=== PATIENT | male | born 1980 | race Caucasian/White ===

== ENCOUNTER 2020-07-08 12:06 | Emergency (ER) | payer OTHER, SELFPAY ==
--- NOTE | ~2020-07-08 | US_ITS ---
EXAMINATION: BILATERAL TRIPLEX SCANNING OF THE LOWER EXTREMITIES CLINICAL INFORMATION: Lower extremity swelling. COMPARISON: None. TECHNIQUE: Color-flow triplex imaging with spectral analysis and compression Doppler were performed on the lower extremities. FINDINGS: Respiratory variation, normal compression and augmented flow are noted throughout the lower extremities. The visualized common femoral vein, superficial femoral vein, profunda femoral vein, popliteal vein and mid calf peroneal and posterior tibial venous segments show no evidence of deep venous thrombosis. There is no Najera's cyst. US/US venous duplex LE BI IMPRESSION: Normal triplex scan without evidence of deep venous thrombosis involving the lower extremities.
--- NOTE | ~2020-07-08 | CT_ITS ---
EXAMINATION: CT ANGIOGRAM CHEST WITH AND WITHOUT CONTRAST (CT PULMONARY ANGIOGRAM FOR PE) CLINICAL INFORMATION: Patient with b/l LE swelling, question PE versus CHF. COMPARISON: CT 01/27/2019 TECHNIQUE: Prior to contrast administration, noncontrast localization images were obtained. Subsequently, multidetector volumetric imaging was performed from the thoracic inlet to below the diaphragms following the administration of 69 mL Omnipaque 350 intravenous contrast. No contrast reaction reported. Sagittal, coronal, and MIP oblique sagittal reformatted images were obtained on the CT workstation, uploaded to PACS, and reviewed. This CT examination was performed using dose optimization techniques as appropriate, variously including the following: *Automated exposure control. *Adjustment of mA and/or kV according to patient size (this includes techniques or standardized protocols for targeted exams where dose is matched to indication/reason for exam; i.e. extremities or head). *Use of iterative reconstruction technique. Total exam dose-length product 324 mGy-cm. FINDINGS: QUALITY OF STUDY/CONTRAST BOLUS: Satisfactory. PULMONARY ARTERIES: No evidence of filling defects to suggest central or segmental pulmonary emboli. THORACIC AORTA: No aneurysm. No evidence of dissection, with the aortic root, proximal aorta suboptimally evaluated due to cardiac motion artifact. LUNG: No focal consolidation. Minimal dependent changes in the posterior aspect of bilateral lungs. No suspicious nodules. PLEURA: No pleural effusion or pneumothorax. MEDIASTINUM: Normal heart size. No pericardial effusion. No hilar or mediastinal lymphadenopathy. No evidence of septal bowing or right heart strain. Mild prominence of the main pulmonary artery measuring 3.1 cm in diameter, suggestive of elevated pulmonary arterial pressures. CHEST WALL/AXILLA: Stable prominent left axillary lymph node measuring 1.1 cm. OSSEOUS STRUCTURES: No acute or suspicious osseous abnormality. UPPER ABDOMEN: Unremarkable. No reflux of contrast into the hepatic veins to suggest elevated right heart pressures. CT/CT angio chest PE protocol IMPRESSION: 1. No evidence of filling defects to suggest pulmonary embolism. 2. Stable mildly prominent main pulmonary artery suggestive of elevated pulmonary arterial pressure. 3. Stable nonspecific prominent 1.1 cm left axillary lymph node. 4. No lung consolidation seen. VTE: Negative.
--- NOTE | ~2020-07-08 | US_ITS ---
EXAMINATION: US NONINVASIVE ASSESSMENT OF THE BILATERAL LOWER EXTREMITY WITH ARTERIAL DUPLEX CLINICAL INFORMATION: Lower extremity edema COMPARISON: None TECHNIQUE: Duplex Doppler techniques with waveform analysis and measurement of velocities in the common femoral, profunda femoris, superficial femoral, popliteal and tibial arteries were performed of the bilateral lower extremities. FINDINGS: RIGHT LOWER EXTREMITY DUPLEX ULTRASOUND: Common femoral artery: 156 cm/s. Diastolic flow reversal: No Profunda femoris artery: 109 cm/s. Diastolic flow reversal: No Superficial femoral artery (proximal): 154 cm/s. Diastolic flow reversal: No Superficial femoral artery (mid): 172 cm/s. Diastolic flow reversal: No Superficial femoral artery (distal): 148 cm/s. Diastolic flow reversal: No Popliteal artery: 132 cm/s Diastolic flow reversal: No Posterior tibial artery: 157 cm/s Diastolic flow reversal: No LEFT LOWER EXTREMITY DUPLEX ULTRASOUND: Common femoral artery: 220 cm/s. Diastolic flow reversal: No Profunda femoris artery: 74 cm/s. Diastolic flow reversal: Yes Superficial femoral artery (proximal): 179 cm/s. Diastolic flow reversal: No Superficial femoral artery (mid): 158 cm/s. Diastolic flow reversal: No Superficial femoral artery (distal): 158 cm/s. Diastolic flow reversal: No Popliteal artery: 118 cm/s Diastolic flow reversal: No Posterior tibial artery: 151 cm/s Diastolic flow reversal: No US/US arterial duplex LE BI IMPRESSION: Mild stenoses throughout the bilateral lower extremities.
--- NOTE | ~2020-07-08 | XR_ITS ---
EXAMINATION: XR CHEST CLINICAL INFORMATION: Lower extremity swelling. COMPARISON: Chest done on 01/10/2019. TECHNIQUE: 2 views of the chest were obtained. FINDINGS: Mild diffuse prominent bronchovascular markings are present, appear similar to prior study, may represent nonspecific bronchitis, appears chronic. No evidence of any dense airspace consolidation to suspect pneumonia. There is no evidence of any pulmonary venous congestion or interstitial edema to suspect CHF. The heart size is within normal limits. No evidence of any pleural effusion or pneumothorax. The visualized upper abdomen is unremarkable. XR/XR chest 2V IMPRESSION: No radiographic evidence of acute cardiopulmonary disease. No significant change since 01/10/2019.
[2020-07-08 12:22] VITALS: BP 138/74; PULSE 97; RESP 18; TEMP 37.1; O2SAT 99; BMI 31.6
--- NOTE | 2020-07-08 15:12 | ED.EXTPRO ---
HPI - Extremity Problem General Chief complaint: Extremity Injury, Lower Stated complaint: leg swelling Time Seen by Provider: 07/08/20 13:23 Source: patient Mode of arrival: ambulatory Limitations: no limitations History of Present Illness HPI Narrative: 39-year-old male with a past medical history of chronic anemia, chronic GERD, asthma, ankylosing spondylitis and pedal edema presenting to the ED with complaints of swelling to bilateral lower extremities with clear/yellow drainage for the past 2 days worse today. Patient also reports weight gain of approximately 30 lb over the past year. Was seen at urgent care and they placed him in a dressing and sent him here for further evaluation and treatment. He reports he had an episode of this a few years ago and was on Lasix which resolve the symptoms although has not been on Lasix since then. Denies any fevers, chills, dizziness, headaches, changes in vision, nausea/vomiting, sore throat, cough, dyspnea on exertion, orthopnea, shortness of breath, chest pain, palpitations, any symptoms, calf tenderness or history of IV drug usage. Denies history of DVT or PEs or CHF or ACS. Patient denies recent travel/immobilization/recent surgery or procedure, history of peripheral vascular disease, recent illness or history of gout. MD Complaint: extremity pain and extremity swelling Onset (ago): day(s) (Two days worse today) Pain Consistency: constant Location: lower extremity Quality: aching and constant Radiation: proximal and distal Relieving factors: nothing Exacerbating factors: weight bearing and walking Associated symptoms: denies other symptoms Related Data Home Medications Medication Instructions Recorded Confirmed certolizumab pegol 400 mg (200 mg 400 mg SUBCUT Q2W ea 02/29/20 02/29/20 x 2 vials) subcutaneous kit cyclobenzaprine 5 mg tablet 5 mg PO BEDTIME PRN 02/29/20 02/29/20 fluticasone furoate 100 1 inh INHALATION DAILY 02/29/20 02/29/20 mcg-vilanterol 25 mcg/dose inhalation powder ibuprofen 200 mg tablet 200 mg PO Q6H PRN 02/29/20 02/29/20 prednisone 5 mg tablet 5 mg PO DAILY 02/29/20 02/29/20 Previous Rx's Medication Instructions Recorded albuterol sulfate 90 mcg/actuation 1 inh INHALATION QID PRN 3 Days 02/29/20 aerosol inhaler #18 g Allergies Allergy/AdvReac Type Severity Reaction Status Date / Time No Known Allergies Allergy Verified 07/08/20 12:22 [No Known Allergies*] Review of Systems Review of Systems: Constitutional : Positive weight gain over the past year approximately 30 lb, No Weight loss, No Fever, No Chills, No Night Sweats, No Fatigue, No Malaise ENT/Mouth : No Hearing loss, No Ear Pain, No Nasal Congestion, No Sinus Pain, No Hoarseness, No sore throat, No Rhinorrhea, No Swallowing Difficulty Eyes: No Eye Pain, No Swelling, No Redness, No Foreign Body, No Discharge, No Vision Changes Cardiovascular : No Chest Pain, No SOB, No Dyspnea on Exertion, No Orthopnea, No Edema, No Palpitations Respiratory : No Cough, No Sputum, No Wheezing, No Smoke Exposure, No Dyspnea Gastrointestinal : No Nausea, No Vomiting, No Diarrhea, No Constipation, No abdominal Pain, No Hematochezia, No Melena Genitourinary : no irregular bleeding, No Dysuria, No Urinary Frequency, No Hematuria, No Urinary Incontinence, No Urgency, No Flank Pain, No Urinary Flow Changes, No Hesitancy Musculoskeletal : positive lower extremity pain/swelling, No Myalgias Skin : No Skin Lesions, No rash Neuro : No Weakness, No Numbness, No Paresthesias, No Loss of Consciousness, No Dizziness, No Headache Psych : No Anxiety/Panic, No Depression, No SI/HI/AH/VH, No Social Issues, Heme/Lymph: No Bruising, No Bleeding,No Lymphadenopathy Endocrine : No Polyuria, No Polydipsia, No Temperature Intolerance Yes all other systems are reviewed and are negative FOR[facility]LY [facility] Past Medical History Attestation statement: The following information was validated with the patient. Medical History Ankylosing spondylitis Asthma, moderate Chronic GERD Tobacco abuse Uveitis Surgical History No pertinent past surgical history Family History Family History Father Lymphoma Mother HTN (hypertension) Sister No problems noted. Social History Social History Alcohol intake: never Smoking Status: Current every day smoker Packs Per Day: 0.5 Advance Directives: No Advance Directives Information Provided: Yes Physical Exam Vital Signs: Vital Signs: Last Vital Signs Temp 98.7 F 07/08/20 12:22 Pulse 97 07/08/20 12:22 Resp 18 07/08/20 12:22 BP 138/74 07/08/20 12:22 Pulse Ox 99 07/08/20 12:22 Body Mass Index 31.6 vital signs have been reviewed as normal and appeared to be correct. Blood pressure normal. Heart rate normal. Respiration rate normal. Temperature normal. Oxygen saturation normal. Appearance: Alert. Oriented X3. No acute distress. Head: Normal external exam. Normocephalic. Atraumatic. Eyes: PERRLA. EOMI. Conjunctiva and sclera normal. Eyelids normal. ENT: Pharynx normal. Uvula midline. Moist mucous membranes. Neck: Normal inspection. Neck supple. FROM. No adenopathy. Thyroid Normal. No meningeal signs. No neck mass noted. CVS: Normal heart rate and rhythm. Heart sound normal. No murmurs noted. Pulses normal throughout. Respiratory: No respiratory distress. Painless inspiration. Breath sounds normal. No wheezes/rales/rhonchi noted. Chest nontender. No accessory muscle usage noted or decreased air movement noted. Abdomen: Soft and nontender. Bowel sounds normal in all 4 quadrants. No distention noted. No organomegaly noted. No visible injury noted. Back: Full range of motion noted. Skin: Skin warm and dry. Normal skin color. Normal skin turgor. No rashes/lesions/lacerations noted. Extremities: +3 bilateral lower extremity pitting edema with mild erythema and warm to touch, tender to palpation with leaking serous fluid and sloughing of the skin. See below for pictures. No streaking. Otherwise all other Extremities exhibit normal range of motion and nontender. No calf tenderness noted bilaterally. Vascular: Positive distal pedal pulses and posterior tibialis noted +2. Neuro: Oriented X 3. No motor deficit. No sensory deficit. Reflexes normal. Course Course Course Narrative: 13:45pm - 39-year-old male presenting to the ED with complaints of bilateral lower extremity edema for the past 2 days worse today with clear/yellow drainage and a weight gain of approximately 30 lb over the past year. - on exam patient is alert and oriented x3. Not in any acute distress. Vital signs are stable within normal limits. Lungs clear to auscultation. No wheezes/rales or rhonchi noted. CV RRR. Abdomen is soft and nontender. No focal neural deficits are noted. Lower extremity edema +3 up to the knees draining serous fluid with mild surrounding erythema and tender to palpation. Although patient does have positive distal pulses. No calf tenderness noted. No streaking noted. No fluctuance noted. - Concern for CHF vs PE vs DVT vs pedal edema vs cellulitis Plan: Labs, CTA of chest for PE, chest x-ray, EKG, bilateral duplex ultrasound of lower extremity to evaluate for possible clots, blood cultures, lactic acid. MDM - Extremity (Nontraumatic) Medical Records Attestation: I reviewed the patient's medical records. Lab Data Attestation: I reviewed the patient's lab results. Imaging Data Chest x-ray: Attestation: I personally reviewed and interpreted this imaging study as follows: Radiologist's impression: FINDINGS: Mild diffuse prominent bronchovascular markings are present, appear similar to prior study, may represent nonspecific bronchitis, appears chronic. No evidence of any dense airspace consolidation to suspect pneumonia. There is no evidence of any pulmonary venous congestion or interstitial edema to suspect CHF. The heart size is within normal limits. No evidence of any pleural effusion or pneumothorax. The visualized upper abdomen is unremarkable. XR/XR chest 2V IMPRESSION: No radiographic evidence of acute cardiopulmonary disease. No significant change since 01/10/2019. Critical Care Time Critical Care Time Critical Care Time: Yes Total Critical Care Time: 60 Attestation: I personally attest to this time spent taking care of the patient Discharge Plan Discharge Prescriptions: No Action prednisone 5 mg tablet 5 mg PO DAILY RF: 0 cyclobenzaprine 5 mg tablet 5 mg PO BEDTIME PRNRF: 0 Cimzia Powder for Reconst 400 mg (200 mg x 2 vials) kit 400 mg subcut Q2W RF: 0 Breo Ellipta 100-25 mcg/dose blister with device 1 inh inhalation DAILY RF: 0 ibuprofen 200 mg tablet 200 mg PO Q6H PRNRF: 0 albuterol sulfate [ProAir HFA] 90 mcg/actuation HFA aerosol inhaler 1 inh inhalation QID PRN (Reason: shortness of breath or wheezing) 3 Days Qty: 18 RF: 5
--- NOTE | 2020-07-08 15:52 | PC.NURSE ---
Lab delay and medication delayed due to patient being in [place].
--- NOTE | 2020-07-08 15:54 | ECG_ITS ---
Test Reason : PEDAL EDEMA Blood Pressure : / mmHG Vent. Rate : 077 BPM Atrial Rate : 077 BPM P-R Int : 138 ms QRS Dur : 094 ms QT Int : 378 ms P-R-T Axes : 025 040 022 degrees QTc Int : 427 ms Normal sinus rhythm Normal ECG When compared with ECG of 10-JAN-2019 18:09, No significant changes seen Referred By: Elizabeth Dolan Electronically Signed By:KYRA RIVERO
[2020-07-08 16:00] VITALS: BP 120/70; PULSE 86; RESP 18; TEMP 37.2; O2SAT 100
[2020-07-08 16:43] LABS: MANUAL DIFF FLAG NO
[2020-07-08 16:44] LABS: Basophils Percent Auto 0.4 % (0-2); Eosinophils Absolute Auto 0.4 X10*3/uL (0.0-0.4); Eosinophils Percent Auto 5.1 % (0-4); Hematocrit 24.7 % (42-52); Hemoglobin 7.1 g/dl (14.0-18.0); Imm Gran Abs Auto 0.02 X10*3/uL (0.00-0.03); Imm Gran Pct Auto 0.3 % (0.0-0.4); Lymphocytes Absolute Auto 1.3 X10*3/uL (1.2-4.9); Lymphocytes Percent Auto 19.4 % (20-40); Mean Corpuscular HGB Conc 28.7 g/dl (31.0-36.0); Mean Corpuscular Hemoglobin 19.8 pg (27.0-33.0); Mean Corpuscular Volume 68.8 fL (80-98); Mean Platelet Volume 8.2 fL (9.4-12.4); Monocytes Absolute Auto 0.9 X10*3/uL (0.1-1.2); Monocytes Percent Auto 12.5 % (2-11); Neutrophils Absolute Auto 4.2 X10*3/uL (2.0-8.3); Neutrophils Percent Auto 62.3 % (45-73); Platelet Count 539 X10*3/uL (160-400); Red Blood Count 3.59 X10*6/uL (4.60-5.80); Red Cell Distribution Width 17.4 % (11.0-16.0); White Blood Count 6.8 X10*3/uL (4.8-10.8)
[2020-07-08] MEDS: cefTRIAXone sodium 2 GM in 0.9 % Sodium Chloride 50 ML IV (16:45)
[2020-07-08 16:51] LABS: INTERNATIONAL NORM RATIO 1.2 (0.9-1.1)
[2020-07-08 17:12] LABS: Prothrombin Time 13.7 SEC (10.8-13.0)
--- NOTE | 2020-07-08 17:15 | PC.NURSE ---
pt offeres no complaints. monitoring at this time.
[2020-07-08 17:24] LABS: Lactic Acid 1.7 mmol/L (0.5-2.0)
[2020-07-08 17:31] LABS: Alanine Aminotransferase 9 U/L (0-40); Albumin Level 3.6 g/dL (3.5-5.0); Alkaline Phosphatase 105 U/L (39-117); Anion Gap 17 (12-20); Aspartate Amino Transferase 16 U/L (5-37); Bilirubin Total 0.2 mg/dL (0.0-1.0); Blood Urea Nitrogen 17 mg/dL (9-16); Calcium 9.8 mg/dL (8.4-10.2); Carbon Dioxide 26 mmol/L (22-29); Chloride 98 mmol/L (96-108); Creatinine Clr Calc Pharmacy 104.2; Estimated Glomerular Filt Rate > 60; Glucose Random 78 mg/dL (60-115); Magnesium 1.9 mg/dL (1.6-2.6); Potassium 5.1 mmol/L (3.3-5.1); Sodium 136 mmol/L (135-145); Total Protein 8.4 g/dL (6.5-8.0)
[2020-07-08 17:34] LABS: B Type Natriuretic Peptide 136 pg/mL (<100)
[2020-07-08 17:35] LABS: Influenza A PCR NEGATIVE (Negative); Influenza B PCR NEGATIVE (Negative); Resp Syncy Virus RNA Qual PCR NEGATIVE (Negative); SARS COV2 PCR INHOUSE NEGATIVE (Negative)
[2020-07-08] MEDS: iohexoL 350 MG/ML 100 ML INFUS..BTL IV (18:09)
== END 2020-07-08 19:44 | disposition home or self-care (01) ==
PROVIDERS: Physician Assistant Medical; Emergency Provider Emergency Medicine Emergency Medical Services; PCP Internal Medicine
DX: R60.0 Localized edema (principal); I87.2 Venous insufficiency (chronic) (peripheral); M79.662 Pain in left lower leg; M79.661 Pain in right lower leg; D64.9 Anemia, unspecified; K21.9 Gastro-esophageal reflux disease without esophagitis; J45.909 Unspecified asthma, uncomplicated; F17.210 Nicotine dependence, cigarettes, uncomplicated
CPT/HCPCS: 0241U; 36415; 71046; 71275; 80053; 83605; 83735; 83880; 85025; 85610; 85730; 87040; 93005; 93925; 93970; 96365; 99284; 99291; J0696; Q9967

== ENCOUNTER 2022-05-03 11:00 | Outpatient (REF) | payer OTHER, SELFPAY ==
[2022-05-03 13:51] LABS: MANUAL DIFF FLAG NO
[2022-05-03 13:59] LABS: Basophils Absolute Auto 0.1 X10*3/uL (0.0-0.2); Eosinophils Absolute Auto 0.3 X10*3/uL (0.0-0.4); Eosinophils Percent Auto 3.8 % (0-4); Hematocrit 24.6 % (42.0-52.0); Imm Gran Abs Auto 0.03 X10*3/uL (0.00-0.03); Imm Gran Pct Auto 0.4 % (0.0-0.4); Lymphocytes Absolute Auto 1.3 X10*3/uL (1.2-4.9); Mean Corpuscular HGB Conc 27.6 g/dl (31.0-36.0); Mean Platelet Volume 8.4 fL (9.4-12.4); Monocytes Absolute Auto 0.6 X10*3/uL (0.1-1.2); Monocytes Percent Auto 8.2 % (2-11); Neutrophils Absolute Auto 4.9 x10*3/uL (2.0-8.3); Neutrophils Percent Auto 68.6 % (45-73); Platelet Count 608 X10*3/uL (160-400); Red Blood Count 4.01 X10*6/uL (4.60-5.80); Red Cell Distribution Width 19.4 % (11.0-16.0); White Blood Count 7.1 X10*3/uL (4.8-10.8)
[2022-05-03 14:00] LABS: Mean Corpuscular Volume 61.3 fL (80.0-98.0)
[2022-05-03 14:13] LABS: Hemoglobin 6.8 g/dl (14.0-18.0)
[2022-05-03 14:53] LABS: Alanine Aminotransferase 8 U/L (0-40); Alkaline Phosphatase 113 U/L (39-117); Anion Gap 19 (12-20); Aspartate Amino Transferase 15 U/L (5-37); Bilirubin Total 0.2 mg/dL (0.0-1.0); Blood Urea Nitrogen 23 mg/dL (9-16); Calcium 9.5 mg/dL (8.4-10.2); Carbon Dioxide 20 mmol/L (22-29); Chloride 99 mmol/L (96-108); Estimated Glomerular Filt Rate 51; Glucose Random 86 mg/dL (60-115); Potassium 4.7 mmol/L (3.3-5.1); Sodium 133 mmol/L (135-145); Total Protein 9.6 g/dL (6.5-8.0)
[2022-05-03 15:08] LABS: TSH reflex Free T4 4.06 uIU/mL (0.32-4.0)
== END 2022-05-03 11:01 | disposition home or self-care (01) ==
LOC: HO.HMGCLDS 11:00
PROVIDERS: PCP Internal Medicine; Visit Provider Internal Medicine
DX: I87.2 Venous insufficiency (chronic) (peripheral) (principal); L03.116 Cellulitis of left lower limb; R60.0 Localized edema
CPT/HCPCS: 36415; 80053; 84439; 84443; 85025

== ENCOUNTER 2023-11-09 11:08 | Emergency (ER) | payer OTHER, SELFPAY ==
[2023-11-09 11:18] VITALS: BP 116/71; PULSE 85; RESP 20; TEMP 37.2; O2SAT 100; BMI 21.6
--- NOTE | 2023-11-09 11:19 | ED.GENADULT ---
HPI - General Adult General Chief complaint: ETOH/Substance Use Stated complaint: Withdrawals from Oxy Time Seen by Provider: 11/09/23 12:24 Source: patient and family (patient's mother) Mode of arrival: ambulatory Limitations: no limitations History of Present Illness ED Provider: Ally Argueta PA-C HPI narrative: Patient is a 43 year old assigned male at with a history of asthma, GERD, and ankylosing spondylitis presenting to the emergency department today feeling generally unwell as he detoxes from oxycodone and fentanyl. Patient states that he has chronic issues for which he never got appropriate treatment and has been self medicating with oxycodone and fentanyl he obtains on the street. Patient states that he would like to get clean and go to rehab now. Patient's last use was on 11/08/2023 of approximately 25mg. Patient denies any dizziness, lightheadedness, abdominal pain, nausea, vomiting, fever, chills, blurry vision, double vision, loss of vision, chest pain, difficulty breathing, shortness of breath, back pain, night sweats, pain with urination, increased urinary frequency, increased urinary urgency, blood in his urine or stool, syncope or a near syncopal episode, recent trauma or falls, bowel incontinence, bladder incontinence, or any other complaints at this time. Relieving factors: none Exacerbating factors: none Associated symptoms: denies other symptoms Treatments prior to arrival: none Related Data Previous Rx's ?Medication ?Instructions ?Recorded doxycycline monohydrate 100 mg 100 mg PO BID 10 days #20 caps 09/09/22 capsule sulfamethoxazole 800 1 tab PO BID 10 days #20 tabs 09/09/22 mg-trimethoprim 160 mg tablet (Bactrim DS) Allergies Allergy/AdvReac Type Severity Reaction Status Date / Time No Known Allergies Allergy Verified 11/09/23 11:30 [No Known Allergies*] Review of Systems Constitutional: Constitutional: Reports no additional constitutional complaints, Denies chills, Denies fever(s) and Denies night sweats Eyes: Eyes: Reports no additional eye complaints, Denies blurry vision, Denies change in vision, Denies diplopia, Denies eye discharge, Denies loss of vision and Denies eye pain ENT: Denies dizziness Cardiovascular: Cardiovascular: Reports no additional cardiovascular complaints, Denies chest pain, Denies lightheadedness, Denies Loss of Consciousness and Denies dyspnea Respiratory: Respiratory: Reports no additional respiratory complaints and Denies dyspnea Gastrointestinal: Gastrointestinal: Reports no additional gastrointestinal complaints, Denies abdominal pain, Denies melena, Denies hematochezia, Denies change in bowel habits and Denies change in stool character Genitourinary: Genitourinary: Reports no additional male genitourinary complaints, Denies hematuria, Denies oliguria, Denies difficulty urinating, Denies dysuria, Denies urinary frequency, Denies urinary hesitancy, Denies urinary incontinence and Denies urinary urgency Musculoskeletal: Musculoskeletal: Reports no additional musculoskeletal complaints, Denies numbness and Denies tingling Neurologic: Denies dizziness, Denies loss of vision, Denies numbness and Denies tingling Psychiatric: Psychiatric: Reports no additional psychiatric complaints Endocrine: Endocrine: Reports no additional endocrine complaints Hematologic/Lymphatic: Hematologic/Lymphatic: Reports no additional hematologic/lymphatic complaints Allergic/Immunologic: Allergic/Immunologic: Reports no additional allergic/immunologic complaints [facility]LY [facility], [facility] Past Medical History Attestation statement: The following information was validated with the patient. (patient's mother validated all information.) Source: old records reviewed, obtained from family (patient's mother provided additional history and confirmed the history provided by the patient.) and nursing notes reviewed Medical History Chronic GERD Uveitis Asthma, moderate Tobacco abuse Ankylosing spondylitis Surgical History No pertinent past surgical history Family History Family History Father Lymphoma Mother HTN (hypertension) Sister No problems noted. Social History Social History Housing: House Alcohol intake: current Alcohol intake frequency: holidays/special occasions only Patient Tobacco Use Status: Current everyday Tobacco user Cigarette Packs Per Day: 0.5 e-Cigarette/Vaping Use: Never Used Advance Directives: No Advance Directives Information Provided: Yes Do you have a plan to hurt others: No Plan Current occupational status: disabled Cognitive needs: No Hearing needs: No Vision needs: No Physical Exam ED Vital Signs: Vital Signs - 24 hr 11/09/23 11:18 Temperature 98.9 F Pulse Rate 85 Respiratory Rate 20 Blood Pressure 116/71 Pulse Oximetry 100 Oxygen Delivery Method Room Air BMI result Body Mass Index 21.6 Const General: cooperative, no acute distress, alert and awake Nutritional Appearance: well nourished Orientation/consciousness: patient oriented x3 Limitations: no limitations HENMT Head: Yes normal to inspection and Yes atraumatic Ears: hearing grossly normal bilaterally and external ears normal General nose exam: Normal external nose present, no nasal discharge noted and no epistaxis Face and sinus: Yes normal facial exam, No abrasion and No laceration Mouth: Normal oral and palatal mucosa present, no drooling and no muffled voice Eyes General: appearance normal, both eyes and all related structures Periorbital: periorbital findings normal Eyelids: Yes eyelids normal Conjunctivae: conjunctivae normal Pupils: Equal, round and reactive pupils present EOM: EOMs intact bilaterally Neck Neck: Yes normal visual inspection, Yes full ROM and Yes no lymphadenopathy Chest Chest palpation & inspection: normal inspection of the chest Resp Effort & Inspection: normal respiratory effort and able to speak in complete sentences GI Inspection: Yes normal to inspection Neuro General: patient oriented x3 and moves all extremities Cranial nerves: Yes Equal, round and reactive pupils present Cognition (Neuro): normal cognition Extrem General: Yes normal to inspection, Yes full ROM and Yes capillary refill normal Psych Appearance: grossly normal Mental Status: mental status grossly normal Affect: normal affect Attitude: cooperative Thought process: Normal thought process present Thought content: Normal thought content present Insight: Good insight present (Psych) Course Course Course Narrative: This is a rapid medical exam performed by Hillary Antony NP: Additional HPI, ROS, PE not included below will be deferred to primary provider. Patient is a 43-year-old male with history of chronic venous stasis dermatitis, anemia, GERD, asthma, tobacco use, and ankylosing spondylitis presenting to the ED with complaint of withdrawal symptoms from oxycodone. Complains of sweats/chills, nausea, vomiting, diarrhea and full body pain. States has been buying oxycodone/fentanyl on the street but ran out of money. Has been taking approximately 60mg BID of the oxycodone. At least 10 bags per day of fentanyl daily when not able to obtain oxycodone. Last used yesterday am. Plan: viral serology, basic labs, urine drug screen, COWS scale Medications Administered Discontinued Medications Generic Name Dose Route Start Last Admin Trade Name Ana PRN Reason Stop Dose Admin Methadone HCl 40 mg 11/09/23 12:29 11/09/23 13:06 Methadone Hcl 20 Mg/2 Ml Oral.Conc PO 11/09/23 12:30 40 mg ONCE ONE Administration Medical Decision Making Medical Decision Making [facility] Narrative: Patient is a 43 year old assigned male at with a history of asthma, GERD, and ankylosing spondylitis presenting to the emergency department today requesting help with detox placement. Patient's physical exam was unremarkable. Patient's blood work showed an anemia with a HGB of 7.6 however, this is chronic for the patient. Patient's EKG was unremarkable. I explained my physical exam findings as well as all test results to the patient and the patient's mother. I answered all questions asked by the patient and the patient's mother. I discussed the risks vs. benefits of both Suboxone and Methadone with the patient and his mother. The patient requested to be started on Methadone. Patient was given PO Methadone 40mg. Patient requested to stay in the ED until the addiction team can assist him with placement on 11/10/2023. Patient's mother stated that if the patient were to leave the department, he would be homeless as he would not be allowed back in her house. Patient placed in physician observation pending addiction consultation. Differential Diagnosis Differential Diagnoses: The differential diagnosis associated with the presentation includes Opiate withdrawal Opiate abuse Admission/Observation Consideration of admission/observation: Escalation of care including admission/observation considered Patient would have been admitted to the hospital had his work up had any findings where hospital admission was appropriate and his clinical presentation warranted hospital admission. Lab Data [facility] Lab Attestation statement: I reviewed the patient's lab results. My interpretation of these results are in the [facility] Rationale portion of this note. 11/09/23 11:44 11/09/23 11:44 Labs: Lab Results 11/09/23 Range/Units 11:44 WBC 7.6 (4.8-10.8) X10*3/uL RBC 4.21 L (4.60-5.80) X10*6/uL Hgb 7.6 L (14.0-18.0) g/dl Hct 25.8 L (42.0-52.0) % MCV 61.3 L (80.0-98.0) fL MCH 18.1 L (27.0-33.0) pg MCHC 29.5 L (31.0-36.0) g/dl RDW 19.9 H (11.0-16.0) % Plt Count 408 H D (160-400) X10*3/uL MPV 8.1 L (9.4-12.4) fL Immature Gran % (Auto) 0.3 (0.0-0.4) % Neut % (Auto) 83.4 H (45-73) % Lymph % (Auto) 10.7 L (20-40) % Rains % (Auto) 4.6 (2-11) % Eos % (Auto) 0.5 (0-4) % Baso % (Auto) 0.5 (0-2) % Lymph # (Auto) 0.8 L (1.2-4.9) X10*3/uL Rains # (Auto) 0.4 (0.1-1.2) X10*3/uL Eos # (Auto) 0.0 (0.0-0.4) X10*3/uL Baso # (Auto) 0.0 (0.0-0.2) X10*3/uL Abs Immat Gran (auto) 0.02 (0.00-0.03) X10*3/uL Absolute Neuts (auto) 6.3 (2.0-8.3) x10*3/uL Absolute Nucleated RBC 0.000 (0.0-0.012) X10*3/uL Nucleated RBC % (auto) 0.0 (0.0-0.2) /100WBC Sodium 134 L (135-145) mmol/L Potassium 4.3 (3.3-5.1) mmol/L Chloride 102 (96-108) mmol/L Carbon Dioxide 22 (22-29) mmol/L Anion Gap 14 (12-20) BUN 19 H (9-16) mg/dL Creatinine 0.94 (0.5-1.4) mg/dL Estim Creat Clear Calc 84.5 Estimated GFR > 60 Random Glucose 91 (60-115) mg/dL Calcium 10.2 D (8.4-10.2) mg/dL Magnesium 2.0 (1.6-2.6) mg/dL Total Bilirubin 0.2 (0.0-1.0) mg/dL AST 23 (5-37) U/L ALT 12 (0-40) U/L Alkaline Phosphatase 100 (39-117) U/L Total Protein 9.9 H (6.5-8.0) g/dL Albumin 3.9 (3.5-5.0) g/dL Influenza Type A (PCR) NEGATIVE (Negative) Influenza Type B (PCR) NEGATIVE (Negative) RSV RNA Qual (PCR) NEGATIVE (Negative) SARS-CoV-2 RNA (RT-PCR) NEGATIVE (Negative) Independent Interpretation I performed an independent interpretation of an: EKG Interpretation: Vent. Rate: 076 BPM Atrial Rate: 076 BPM P-R Int: 120 ms QRS Dur: 092 ms QT Int: 392 ms P-R-T Axes: 054 054 033 degrees QTc Int: 441 ms Normal sinus rhythm Normal ECG When compared with ECG of 08-JUL-2020 17:40, No significant change was found DD/ 1255 Independent Historian Clinical information obtained from an independent historian. History obtained from or confirmed by: Parent (patient's mother provided additional history and confirmed the history provided by the patient.) Critical Care Time Critical Care Time Critical Care Time: Yes Total Critical Care Time: 34 Attestation: I spent 34 minutes of Critical Care Time with this patient. This does not include time spent on separately reported billable procedures. Discharge Plan Discharge Clinical Impression: Opiate abuse, continuous, Opiate withdrawal Patient Disposition: Still a Patient Prescriptions: No Action doxycycline monohydrate 100 mg capsule 100 mg PO BID 10 Days Qty: 20 0RF sulfamethoxazole-trimethoprim [Bactrim DS] 800-160 mg tablet 1 tab PO BID 10 Days Qty: 20 0RF Print Language: Surinamese
[2023-11-09 11:48] LABS: MANUAL DIFF FLAG NO
[2023-11-09 11:51] LABS: Basophils Percent Auto 0.5 % (0-2); Eosinophils Percent Auto 0.5 % (0-4); Hematocrit 25.8 % (42.0-52.0); Hemoglobin 7.6 g/dl (14.0-18.0); Imm Gran Abs Auto 0.02 X10*3/uL (0.00-0.03); Imm Gran Pct Auto 0.3 % (0.0-0.4); Lymphocytes Absolute Auto 0.8 X10*3/uL (1.2-4.9); Lymphocytes Percent Auto 10.7 % (20-40); Mean Corpuscular HGB Conc 29.5 g/dl (31.0-36.0); Mean Corpuscular Hemoglobin 18.1 pg (27.0-33.0); Mean Platelet Volume 8.1 fL (9.4-12.4); Monocytes Absolute Auto 0.4 X10*3/uL (0.1-1.2); Monocytes Percent Auto 4.6 % (2-11); Neutrophils Absolute Auto 6.3 x10*3/uL (2.0-8.3); Neutrophils Percent Auto 83.4 % (45-73); Platelet Count 408 X10*3/uL (160-400); Red Blood Count 4.21 X10*6/uL (4.60-5.80); Red Cell Distribution Width 19.9 % (11.0-16.0); White Blood Count 7.6 X10*3/uL (4.8-10.8)
[2023-11-09 11:55] LABS: Mean Corpuscular Volume 61.3 fL (80.0-98.0)
[2023-11-09 12:13] LABS: Alanine Aminotransferase 12 U/L (0-40); Albumin Level 3.9 g/dL (3.5-5.0); Alkaline Phosphatase 100 U/L (39-117); Anion Gap 14 (12-20); Aspartate Amino Transferase 23 U/L (5-37); Bilirubin Total 0.2 mg/dL (0.0-1.0); Blood Urea Nitrogen 19 mg/dL (9-16); Calcium 10.2 mg/dL (8.4-10.2); Carbon Dioxide 22 mmol/L (22-29); Chloride 102 mmol/L (96-108); Creatinine Clr Calc Pharmacy 84.5; Estimated Glomerular Filt Rate > 60; Glucose Random 91 mg/dL (60-115); Potassium 4.3 mmol/L (3.3-5.1); Sodium 134 mmol/L (135-145); Total Protein 9.9 g/dL (6.5-8.0)
[2023-11-09 12:29] LABS: Influenza A PCR NEGATIVE (Negative); Influenza B PCR NEGATIVE (Negative); Resp Syncy Virus RNA Qual PCR NEGATIVE (Negative); SARS COV2 PCR INHOUSE NEGATIVE (Negative)
--- NOTE | 2023-11-09 12:37 | ECG_ITS ---
Test Reason : qtc/methadone Blood Pressure : / mmHG Vent. Rate : 076 BPM Atrial Rate : 076 BPM P-R Int : 120 ms QRS Dur : 092 ms QT Int : 392 ms P-R-T Axes : 054 054 033 degrees QTc Int : 441 ms Normal sinus rhythm Normal ECG When compared with ECG of 08-JUL-2020 17:40, No significant change was found Referred By: Ally Argueta Electronically Signed By:KYRA RIVERO
[2023-11-09] MEDS: methADONE HCl 20 MG/2 ML ORAL.CONC 40 MG PO (13:06)
[2023-11-09 14:12] VITALS: BP 122/72; PULSE 74; RESP 16; O2SAT 100
[2023-11-09] MEDS: LORazepam 1 MG TABLET 2 MG PO (16:26)
[2023-11-09 17:00] LABS: Amphetamine Screen Urine Not Detected (Not Detect); Barbiturates, Urine Not Detected (Not Detect); Benzodiazepines Screen Urine Not Detected (Not Detect); Buprenorphine Scr Not Detected (Not Detect); Cannabinoid Screen Urine Not Detected (Not Detect); Cocaine Screen Urine Not Detected (Not Detect); Fentanyl, urine POSITIVE (Not Detect); Methadone Screen, Urine Positive (Not Detect); Opiate Screen Urine POSITIVE (Not Detect); Oxycodone Screen Urine Positive (Not Detect); Phencyclidine Screen Urine Not Detected (Not Detect)
[2023-11-09 20:09] VITALS: BP 121/68; PULSE 56; RESP 16; TEMP 36.9; O2SAT 100
--- NOTE | 2023-11-09 20:12 | PC.NURSE ---
pt sitting on the edge of his bed, ate 50% of dinner
--- NOTE | 2023-11-09 23:25 | PC.NURSE ---
pt ambulating to bathroom with a slow and steady gait with the use of his 2 canes
[2023-11-10 04:35] VITALS: BP 125/79; PULSE 88; RESP 16; TEMP 37.1; O2SAT 99
--- NOTE | 2023-11-10 05:19 | PC.NURSE ---
pt restless throughout the night, up and down to the bathroom, standing at bedside. upset that he agreed to stay to talk to addiction team in AM, reluctant but willing to continue waiting.
--- NOTE | 2023-11-10 07:43 | PC.NURSE ---
pt ambulates to the restroom w/ double canes for assistance independently. steady gait noted. pt now sitting in stretcher/in no apparent distress/eating breakfast tray. pt repositioned to comfort. pt waiting for addiction medicine consult at this time. no sob/wob noted. respirations even/unlabored. plan of care ongoing.
--- NOTE | 2023-11-10 08:32 | MHC.RECOVRN ---
Pts referral currently being reviewed by [facility].
[2023-11-10 10:49] VITALS: BP 98/65; PULSE 70; RESP 18; TEMP 36.7; O2SAT 100
--- NOTE | 2023-11-10 10:49 | PC.NURSE ---
vss and up to date aside from pt being slightly hypotensive. otherwise vital signs stable. per data base design analyst RN, Ayana, pt has a bed reserved at [facility]. pt/family notified/aware to ease pt's anxiety on plan of care. pt aware that Ayana will be available to speak w/ him once she is out of a meeting. otherwise pt continues to wait in stretcher in no apparent distress. no sob/wob noted. respirations remain even/unlabored. family bedside for support. plan of care ongoing.
[2023-11-10] MEDS: Naloxone HCl Nasal TAKE HOME 4 MG SPRAY 8 MG NOSTRILALT (11:57)
--- NOTE | 2023-11-10 11:58 | PC.NURSE ---
pt provided w/ take home narcan prior to discharge. arrangement set up w/ [facility] throughout [place]. pt being transported to facility by facility member.
[2023-11-10 11:59] VITALS: BP 98/65; PULSE 70; RESP 18; TEMP 36.7; O2SAT 100
--- NOTE | 2023-11-10 12:01 | MHC.RECOVRN ---
Pt accepted to [facility] for 1PM admission, will be transported by mother. Pt denies questions or concerns for t/w.
== END 2023-11-10 11:59 | disposition home or self-care (01) ==
PROVIDERS: Registered Nurse Emergency; Emergency Provider Emergency Medicine; PCP Internal Medicine
DX: F11.23 Opioid dependence with withdrawal (principal); F11.29 Opioid dependence with unspecified opioid-induced disorder; R11.2 Nausea with vomiting, unspecified; M79.10 Myalgia, unspecified site; R07.89 Other chest pain; F17.210 Nicotine dependence, cigarettes, uncomplicated; Z03.818 Encounter for observation for suspected exposure to other biological agents ruled out; Z51.81 Encounter for therapeutic drug level monitoring; Z79.899 Other long term (current) drug therapy
CPT/HCPCS: 0241U; 80053; 80307; 83735; 85025; 93005; 99285

== ENCOUNTER → 2023-11-09 12:37 | Outpatient (BNV) | payer OTHER, SELFPAY | PROVIDERS: Emergency Provider Emergency Medicine; PCP Internal Medicine; Visit Provider Internal Medicine | DX: R94.31 Abnormal electrocardiogram [ECG] [EKG] (principal) | CPT/HCPCS: 93010 ==

== ENCOUNTER 2023-11-10 20:00 | Emergency (ER) | payer OTHER, SELFPAY ==
[2023-11-10 20:33] VITALS: BP 124/77; PULSE 82; RESP 18; TEMP 36.3; O2SAT 99; BMI 22.5
--- NOTE | 2023-11-10 20:34 | ED_ITS ---
HPI - General Adult General Chief complaint: General Medical Stated complaint: withdrawals Time Seen by Provider: 11/11/23 05:51 History of Present Illness ED Provider: Umu MELARA narrative: The patient is a 43-year-old male with a history of ankylosing spondylitis. He also has a history of opioid addiction. He came to the emergency room the day before presentation on FridayJanuary 08 looking for help with detox. He was kept in the emergency room and started on methadone. Arrangements were made for him to be admitted to [facility] for ongoing care. He left the emergency room at around noon on FridayNovember 09 and went to [facility]. He was at [facility] for a few hours. At [facility] the facility staff felt that the patient has disabilities related to his ankylosing spondylitis that require more personal care than they can provide. He was therefore asked to leave. His mother picked him up from the detox facility and took him home. He showered and had some food and then his mother returned him to the hospital here. He says that he is hoping a different detox facility, possibly [facility] in [place] might be more capable of managing his disabilities. He says that when he uses illicit drugs he takes them nasally. He says he has never injected IV drugs. He says that over the last 24 hours he felt mildly run down but he attributed this to withdrawal symptoms. He subsequently tested positive for COVID after returning to the emergency department. When he was tested for COVID on his previous visit on November 08 he had tested negative. He was surprised to learn that he had COVID but he feels this accounts for some symptoms that he thought were related to withdrawal from opiates. Related Data Previous Rx's ?Medication ?Instructions ?Recorded doxycycline monohydrate 100 mg 100 mg PO BID 10 days #20 caps 09/09/22 capsule sulfamethoxazole 800 1 tab PO BID 10 days #20 tabs 09/09/22 mg-trimethoprim 160 mg tablet (Bactrim DS) Allergies Allergy/AdvReac Type Severity Reaction Status Date / Time No Known Allergies Allergy Verified 11/10/23 20:37 [No Known Allergies*] Review of Systems 2 Review of Systems: Yes all other systems are reviewed and are negative [facility] Past Medical History Medical History Chronic GERD Uveitis Asthma, moderate Tobacco abuse Ankylosing spondylitis Surgical History No pertinent past surgical history Family History Family History Father Lymphoma Mother HTN (hypertension) Sister No problems noted. Social History Social History Housing: House Alcohol intake: current Alcohol intake frequency: holidays/special occasions only Patient Tobacco Use Status: Current everyday Tobacco user Cigarette Packs Per Day: 0.5 e-Cigarette/Vaping Use: Never Used Advance Directives: No Advance Directives Information Provided: Yes Do you have a plan to hurt others: No Plan Current occupational status: disabled Cognitive needs: No Hearing needs: No Vision needs: No Physical Exam ED Vital Signs: Vital Signs - 24 hr 11/10/23 20:33 11/11/23 00:11 11/11/23 04:26 Temperature 97.4 F 97.7 F 97.7 F Pulse Rate 82 77 70 Respiratory Rate 18 18 16 Blood Pressure 124/77 104/69 125/77 Pulse Oximetry 99 100 100 Oxygen Delivery Method Room Air Room Air Room Air 11/11/23 06:31 11/11/23 08:22 Temperature 98.3 F 97.9 F Pulse Rate 66 75 Respiratory Rate 15 14 Blood Pressure 96/58 L 103/67 Pulse Oximetry 96 100 Oxygen Delivery Method Room Air Room Air BMI result Body Mass Index 22.5 Const Other: The patient is a very thin, frail looking 43-year-old. He is quite chronically ill-appearing. He is awake and alert and was pleasant and cooperative. I interviewed him after he had received a dose of methadone. HENMT Other: Face is symmetrical. Mucous membranes moist. Dentition is poor. Eyes Other: Pupils are round equal, conjunctivae are clear, extraocular movements intact Neck Neck: Yes no lymphadenopathy and Yes no JVD Resp Effort & Inspection: normal respiratory effort Auscultation: clear to auscultation bilaterally Cardio Rate: regular rate Rhythm: regular rhythm Heart sounds: S1 normal heart sound present and S2 normal heart sound present GI Other: Abdomen is flat, soft, and nontender. Skin Other: Skin is pale and dry Neuro Other: The patient is awake and alert. He has a clear mental status. Cranial nerves seem intact. He moves his extremities symmetrically. He seems quite frail. Extrem Other: The patient has arthritic changes to the hands and more so to the feet. He has bilateral lower leg edema that appears chronic. Course Course Course Narrative: RME performed by Ally Argueta PA-C. Patient is a 43 year old assigned male at presenting to the emergency department with opiate withdrawals. Patient states that he was seen here for opiate withdrawals yesterday, given medication, and got accepted at [facility]. However, when he made it to [facility] today - they declined him because he needs a higher level of care than they can provide. Patient states because of that he was not diagnosed with his methadone. Detailed physical exam and review of systems are deferred to the primary education professor. EKG, labs, and COVID-19 swab ordered. Methadone ordered. Patient will likely stay until 11/11/2023 to have our addiction team assist with placement. Medications Administered Discontinued Medications Generic Name Dose Route Start Last Admin Trade Name Freq PRN Reason Stop Dose Admin Methadone HCl 40 mg 11/10/23 20:40 11/11/23 08:02 Methadone Hcl 20 Mg/2 Ml Oral.Conc PO Not Given DAILY JEZ Methadone HCl 10 mg 11/11/23 08:54 11/11/23 09:05 Methadone Hcl 20 Mg/2 Ml Oral.Conc PO 11/11/23 08:55 10 mg ONCE ONE Administration Medical Decision Making Medical Decision Making [facility] Narrative: The patient is a 43-year-old male with a history of ankylosing spondylitis and a history of substance use disorder. He is apparently trying to get off opioids. He was seen here yesterday for the same complaint and got a lot of relief from a dose of methadone. He returns after having been admitted to [facility] detox but had to leave because of his disabilities related to his ankylosing spondylitis and his ability to care for himself. He returns to the emergency room after things did not work out for him at [facility]. He seems to hope that he can be placed at the [facility] in [place] he would like to continue methadone. He found it very helpful. He says that ultimately he hopes that he will be able to get off methadone fairly soon. Clinically I do not think the patient has any new acute medical problem. I think he is therefore medically cleared for consideration by the care team, the recovery team, or addiction Medicine Services. The patient was kept in the emergency room and he was signed out at the end of my shift. Lab Data 11/10/23 21:11 11/10/23 21:11 Labs: Lab Results 11/10/23 11/10/23 11/10/23 Range/Units 21:11 21:54 23:38 WBC 8.0 (4.8-10.8) X10*3/uL RBC 4.50 L (4.60-5.80) X10*6/uL Hgb 8.2 L (14.0-18.0) g/dl Hct 27.4 L (42.0-52.0) % MCV 60.9 L (80.0-98.0) fL MCH 18.2 L (27.0-33.0) pg MCHC 29.9 L (31.0-36.0) g/dl RDW 20.3 H (11.0-16.0) % Plt Count 479 H (160-400) X10*3/uL MPV 8.3 L (9.4-12.4) fL Immature Gran % (Auto) 0.4 (0.0-0.4) % Neut % (Auto) 65.7 (45-73) % Lymph % (Auto) 24.2 (20-40) % [place] % (Auto) 8.2 (2-11) % Eos % (Auto) 0.9 (0-4) % Baso % (Auto) 0.6 (0-2) % Lymph # (Auto) 1.9 (1.2-4.9) X10*3/uL [place] # (Auto) 0.7 (0.1-1.2) X10*3/uL Eos # (Auto) 0.1 (0.0-0.4) X10*3/uL Baso # (Auto) 0.1 (0.0-0.2) X10*3/uL Abs Immat Gran (auto) 0.03 (0.00-0.03) X10*3/uL Absolute Neuts (auto) 5.2 (2.0-8.3) x10*3/uL Absolute Nucleated RBC 0.000 (0.0-0.012) X10*3/uL Nucleated RBC % (auto) 0.0 (0.0-0.2) /100WBC Sodium 135 (135-145) mmol/L Potassium 3.6 (3.3-5.1) mmol/L Chloride 101 (96-108) mmol/L Carbon Dioxide 22 (22-29) mmol/L Anion Gap 16 (12-20) BUN 21 H (9-16) mg/dL Creatinine 0.88 (0.5-1.4) mg/dL Estim Creat Clear Calc 93.7 Estimated GFR > 60 Random Glucose 87 (60-115) mg/dL Calcium 10.0 (8.4-10.2) mg/dL Total Bilirubin 0.2 (0.0-1.0) mg/dL AST 19 (5-37) U/L ALT 14 (0-40) U/L Alkaline Phosphatase 107 (39-117) U/L Total Protein 10.3 H (6.5-8.0) g/dL Albumin 4.2 (3.5-5.0) g/dL Urine Color Yellow Urine Appearance Clear Urine pH 6.0 (5.0-9.0) Ur Specific [place] 1.020 (1.005-1.025) Urine Protein 30 (1+) H (Neg-Trace) mg/dL Urine Glucose (UA) Negative (Negative) mg/dL Urine Ketones Negative (Negative) mg/dL Urine Blood Negative (Negative) Urine Nitrite Negative (Negative) Ur Leukocyte Esterase Negative (Negative) Urine RBC 3-5 H (0-2) /HPF Urine WBC 0-5 (0-5) /HPF Ur Squamous Epith Cells 0-2 (0-2) /HPF Urine Bacteria None Seen (None Seen) Hyaline Casts 0-2 (0-2) /LPF Salicylates < 5.0 L (15-30) mg/dL Urine Opiates Screen POSITIVE H (Not Detect) Ur Buprenorphine Scrn Not Detected (Not Detect) ng/mL Ur Oxycodone Screen Not Detected (Not Detect) ng/mL Urine Methadone Screen Positive H (Not Detect) ng/mL Urine Fentanyl Screen POSITIVE H (Not Detect) Acetaminophen < 3 (<30) mcg/mL Ur Barbiturates Screen Not Detected (Not Detect) Ur Phencyclidine Scrn Not Detected (Not Detect) Ur Amphetamines Screen Not Detected (Not Detect) U Benzodiazepines Scrn Not Detected (Not Detect) Urine Cocaine Screen Not Detected (Not Detect) U Marijuana (THC) Screen Not Detected (Not Detect) Ethyl Alcohol < 10 mg/dL COVID-19 ([facility]) Cancelled COVID-19 Clin Com Cancelled Influenza Type A (PCR) NEGATIVE (Negative) Influenza Type B (PCR) NEGATIVE (Negative) RSV RNA Qual (PCR) NEGATIVE (Negative) SARS-CoV-2 RNA (RT-PCR) POSITIVE A (Negative) Discharge Plan Discharge Clinical Impression: Substance use disorder, Ankylosing spondylitis, COVID-19 Patient Disposition: Home, Self-Care Additional Instructions: Please plan on going to the [facility] for ongoing methadone dosing. With regard to your COVID status please plan on wearing a mask and isolating yourself as much as possible for the next 10 days. Drink lot of fluids. Please follow up with your regular medical providers. Return to the emergency room if significantly worse. Prescriptions: No Action doxycycline monohydrate 100 mg capsule 100 mg PO BID 10 Days Qty: 20 0RF sulfamethoxazole-trimethoprim [Bactrim DS] 800-160 mg tablet 1 tab PO BID 10 Days Qty: 20 0RF Referrals: Gloria Kirkpatrick MD [Primary Care Provider] - (COVID) Interventions: ED Discharge Assessment Last Done: 11/11/23 09:27 Discharge Date/Time: 11/11/23 09:32 Print Language: Gambian
--- NOTE | 2023-11-10 20:38 | ECG_ITS ---
Test Reason : substance use Blood Pressure : / mmHG Vent. Rate : 073 BPM Atrial Rate : 073 BPM P-R Int : 116 ms QRS Dur : 094 ms QT Int : 396 ms P-R-T Axes : 060 066 052 degrees QTc Int : 436 ms Artifact in tracing Normal sinus rhythm Minimal voltage criteria for LVH, may be normal variant ( Sokolow-Pizano ) Nonspecific T wave abnormality Abnormal ECG When compared with ECG of 09-NOV-2023 12:55, No significant change was found Referred By: Ally Argueta Electronically Signed By:KYRA RIVERO
[2023-11-10 21:16] LABS: MANUAL DIFF FLAG NO
[2023-11-10 21:21] LABS: Basophils Absolute Auto 0.1 X10*3/uL (0.0-0.2); Basophils Percent Auto 0.6 % (0-2); Eosinophils Absolute Auto 0.1 X10*3/uL (0.0-0.4); Eosinophils Percent Auto 0.9 % (0-4); Hematocrit 27.4 % (42.0-52.0); Hemoglobin 8.2 g/dl (14.0-18.0); Imm Gran Abs Auto 0.03 X10*3/uL (0.00-0.03); Imm Gran Pct Auto 0.4 % (0.0-0.4); Lymphocytes Absolute Auto 1.9 X10*3/uL (1.2-4.9); Lymphocytes Percent Auto 24.2 % (20-40); Mean Corpuscular HGB Conc 29.9 g/dl (31.0-36.0); Mean Corpuscular Hemoglobin 18.2 pg (27.0-33.0); Mean Platelet Volume 8.3 fL (9.4-12.4); Monocytes Absolute Auto 0.7 X10*3/uL (0.1-1.2); Monocytes Percent Auto 8.2 % (2-11); Neutrophils Absolute Auto 5.2 x10*3/uL (2.0-8.3); Neutrophils Percent Auto 65.7 % (45-73); Platelet Count 479 X10*3/uL (160-400); Red Cell Distribution Width 20.3 % (11.0-16.0)
[2023-11-10 21:23] LABS: Mean Corpuscular Volume 60.9 fL (80.0-98.0)
[2023-11-10 21:52] LABS: Acetaminophen LAB < 3 mcg/mL (<30); Alanine Aminotransferase 14 U/L (0-40); Albumin Level 4.2 g/dL (3.5-5.0); Alkaline Phosphatase 107 U/L (39-117); Anion Gap 16 (12-20); Aspartate Amino Transferase 19 U/L (5-37); Bilirubin Total 0.2 mg/dL (0.0-1.0); Blood Urea Nitrogen 21 mg/dL (9-16); Carbon Dioxide 22 mmol/L (22-29); Chloride 101 mmol/L (96-108); Creatinine Clr Calc Pharmacy 93.7; Estimated Glomerular Filt Rate > 60; Ethanol < 10 mg/dL; Glucose Random 87 mg/dL (60-115); Potassium 3.6 mmol/L (3.3-5.1); Salicylate < 5.0 mg/dL (15-30); Sodium 135 mmol/L (135-145); Total Protein 10.3 g/dL (6.5-8.0)
[2023-11-10 22:47] LABS: Influenza A PCR NEGATIVE (Negative); Influenza B PCR NEGATIVE (Negative); Resp Syncy Virus RNA Qual PCR NEGATIVE (Negative); SARS COV2 PCR INHOUSE POSITIVE (Negative)
[2023-11-10 23:46] LABS: Appearance Urine Clear; Color Urine Yellow; Glucose Urine UA Negative (Negative); Leukocyte Esterase Urine Negative (Negative); Nitrite Urine Negative (Negative); UMIC TRIGGER UA YES; Urine Blood Negative (Negative); Urine Ketones Negative (Negative); Urine Protein 30 (1+) mg/dL (Neg-Trace)
[2023-11-10 23:56] LABS: Amphetamine Screen Urine Not Detected (Not Detect); Barbiturates, Urine Not Detected (Not Detect); Benzodiazepines Screen Urine Not Detected (Not Detect); Buprenorphine Scr Not Detected (Not Detect); Cannabinoid Screen Urine Not Detected (Not Detect); Cocaine Screen Urine Not Detected (Not Detect); Fentanyl, urine POSITIVE (Not Detect); Methadone Screen, Urine Positive (Not Detect); Opiate Screen Urine POSITIVE (Not Detect); Oxycodone Screen Urine Not Detected (Not Detect); Phencyclidine Screen Urine Not Detected (Not Detect)
[2023-11-10 23:58] LABS: Bacteria Urine None Seen (None Seen); Hyaline Casts Urine 0-2 /LPF (0-2); Squamous Epithelial Cell Urine 0-2 /HPF (0-2); WBC Urine 0-5 /HPF (0-5)
[2023-11-11 00:11] VITALS: BP 104/69; PULSE 77; RESP 18; TEMP 36.5; O2SAT 100
[2023-11-11 04:26] VITALS: BP 125/77; PULSE 70; RESP 16; TEMP 36.5; O2SAT 100
[2023-11-11] MEDS: methADONE HCl 20 MG/2 ML ORAL.CONC 40 MG PO (05:27)
--- NOTE | 2023-11-11 05:52 | PC.NURSE ---
Assumed care of pt at 0. Pt in wheelchair reports feeling bad . Requesting methadone. Methadone ordered at but pt was in waiting room. Pt given PO methadone as ordered. Pt reporting nausea and body aches. Pt changed into hospital aattire and assisted into stretcher. Pt reported feeling much better at this time. Denies SI/HI.
[2023-11-11 06:31] VITALS: BP 96/58; PULSE 66; RESP 15; TEMP 36.8; O2SAT 96
--- NOTE | 2023-11-11 08:02 | PC.NURSE ---
Patient received 40mg mathadone this AM, patient reports feeling better, provider aware that another dose was ordered at 9am, stating to hold and patient will receive another dose of 40mg tonight.
--- NOTE | 2023-11-11 08:06 | PC.NURSE ---
Patient oob to commode to have BM
--- NOTE | 2023-11-11 08:07 | PC.NURSE ---
Per provider patient will receive next methadone dose tomorrow at 5am
[2023-11-11 08:22] VITALS: BP 103/67; PULSE 75; RESP 14; TEMP 36.6; O2SAT 100
--- NOTE | 2023-11-11 08:39 | PC.NURSE ---
Patient seen by addiction RN
[2023-11-11] MEDS: methADONE HCl 20 MG/2 ML ORAL.CONC 10 MG PO (09:05)
--- NOTE | 2023-11-11 09:19 | MHC.RECOVRN ---
Met with pt in ED16 after pt returned to ED after being dc from [facility] due to needing a higher level of care. Pt laying in bed, eyes closed, wakes to voice. Pt informed t/w he is not able to dress himself, hence the dc from [facility]. Pt reports he had been using 5-10 bags heroin/fentanyl, [place], off and on since 2005. Pt reports he had been on Suboxone x 1 year, approx a year ago. Pt states It went well until I ran into some money. Pt denies hx ATS, methadone, overdoses. Pt reports last use was on Friday, had used 5 5 mg oxycodone, [place]. Pt received 40 mg methadone this morning to address withdrawal symptoms. Pt reports currently feeling okay but I had diarrhea. Discussed recovery resources and support options with pt. Pt not eligble for ATS due to last use on Friday. Pt is interested in continuing methadone and connecting to [facility]. Pt reports he will be able to get to the [facility] daily. Pt denies questions or concerns for t/w. Plan to administer additional 10 mg methadone and dc home. Discussed with ED provider. Referral sent to [facility].
[2023-11-11 09:27] VITALS: BP 103/67; PULSE 75; RESP 18; TEMP 36.6; O2SAT 100
== END 2023-11-11 09:32 | disposition home or self-care (01) ==
PROVIDERS: Physician Assistant; Physician Assistant Medical; Emergency Provider Emergency Medicine; PCP Internal Medicine
DX: F11.23 Opioid dependence with withdrawal (principal); U07.1 COVID-19; M45.9 Ankylosing spondylitis of unspecified sites in spine; R94.31 Abnormal electrocardiogram [ECG] [EKG]; F17.210 Nicotine dependence, cigarettes, uncomplicated; Z79.899 Other long term (current) drug therapy
CPT/HCPCS: 0241U; 80053; 80143; 80179; 80307; 81001; 85025; 87635; 93005; 99284

== ENCOUNTER → 2023-11-10 20:38 | Outpatient (BNV) | payer OTHER, SELFPAY | PROVIDERS: Emergency Provider Emergency Medicine; PCP Internal Medicine; Visit Provider Internal Medicine | DX: R94.31 Abnormal electrocardiogram [ECG] [EKG] (principal) | CPT/HCPCS: 93010 ==

== ENCOUNTER 2023-12-05 09:59 | Outpatient (AMB) | payer OTHER, SELFPAY ==
[2023-12-05 10:03] VITALS: BP 116/68; PULSE 66; O2SAT 99; BMI 20.3
--- NOTE | 2023-12-05 10:03 | A.OFFPC_ITS ---
Vital Signs 12/05/23 10:03 Height 5 ft 5 in Weight 122 lb 2 oz BMI 20.3 BP 116/68 Blood Pressure Location Rt brachial Position Standing Pulse 66 Pulse Source Pulse Oximeter Pulse Oximetry (%) 99 Oxygen Delivery Method Room Air Intake Visit Reasons: Patient PE Allergies No Known Allergies [No Known Allergies*] Allergy (Verified 12/05/23 10:03) Medication List - Last Reconciled 12/05/23 by Gloria Kirkpatrick MD [methadone 30 PO 2XD] omeprazole 40 mg PO DAILY Tobacco use date assessed: 12/05/23 Dental Screening Dental Screen Date: 12/05/23 Did you have a dental problem in the last 6 months where you did not have access to dental care?: No HPI Patient PE 2 HPI Details Patient is a 43-year-old male with a history of ankylosing spondylitis and history of opioid addiction on methadone currently presented to emergency room on 11/10/2023 with a chief complaint of help with detox as he was having withdrawal. Patient was accepted at [facility] for detox but then was declined as he needed higher skilled care and they could not provide that. 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 for ankylosing spondylitis treatment And he has also developed blurring of vision and need to see an eye doctor Patient have peripheral vascular disease with chronic skin changes both lower extremity He uses canes both hands to ambulate and need a transportation paperwork filled He came in today with his mother who tells me that he is very stubborn and does not follow directions He was not able to get on examination table because of his back pain Exam was limited [facility] Medical History Chronic GERD Uveitis Asthma, moderate Tobacco abuse Ankylosing spondylitis Surgical History No pertinent past surgical history Family History Father Lymphoma Mother HTN (hypertension) Sister No problems noted. Social History Housing: House Alcohol intake: current Alcohol intake frequency: holidays/special occasions only Patient Tobacco Use Status: Current everyday Tobacco user Cigarette Packs Per Day: 0.5 e-Cigarette/Vaping Use: Never Used service: No Current occupational status: disabled Cognitive needs: No Hearing needs: No Vision needs: No Questionnaire PHQ-9 Over the last 2 weeks, how often have you been bothered by any of the following problems? 1. Little interest or pleasure in doing things: not at all 2. Feeling down, depressed, or hopeless: not at all 3. Trouble falling or staying asleep, or sleeping too much: not at all 4. Feeling tired or having little energy: not at all 5. Poor appetite or overeating: not at all 6. Feeling bad about yourself - or that you are a failure or have let yourself or your family down: not at all 7. Trouble concentrating on things, such as reading the newspaper or watching television: not at all 8. Moving or speaking so slowly that other people could have noticed. Or the opposite - being so fidgety or restless that you have been moving around a lot more than usual: not at all 9. Thoughts that you would be better off or of hurting yourself in some way: not at all Total score: 0 Depression Screening Interpretation: Negative Depression Screening Done: Yes [id number] - PHQ-9 Billing: Yes Source: Developed by Drs. Terrance Colbert, Jeanette Horton, Mark Bryson and colleagues, with an educational titi from [employer]. Thrive Questionnaire Date Thrive assessed: 12/05/23 I am a: Patient What is your living situation today?: I have a steady place to live Within the past 12 months, did the food you bought not last and you didn't have the money to get more?: Never true Within the past 12 months, did you worry whether your food would run out before you got money to buy more?: Never true Do you have trouble paying for medicines?: No Do you have trouble getting transportation to medical appointments?: No Do you have trouble paying your heating and electricity bill?: No Do you have trouble taking care of your child, family member or friend?: I choose not to answer this question Do you have trouble with day-to-day activities such as bathing, preparing meals, shopping, managing finances, etc.?: Yes Are you currently unemployed and looking for a job?: No Are you interested in more education?: No Please select the resources that you would like help with: Transportation and Care for elder or disabled Currently or been in a relationship where the following occur: No concerns reported THRIVE Score: 0 AUDIT C Alcohol Use Questionnaire (AUDIT-C) 1. How often do you have a drink containing alcohol?: Never 3. How often do you have six or more drinks on one occasion?: Never Total Score: 0 Score Reviewed/Action Taken: Yes YEIMI-7 AMB Questionnaire YEIMI-7 Date YEIMI - 7 assessed: 12/05/23 Feeling nervous, anxious, or on edge: 0 = Not at all Not being able to stop or control worryin = Not at all Worrying too much about different things: 0 = Not at all Trouble relaxin = Not at all Being so restless that it is hard to sit still: 0 = Not at all Becoming easily annoyed or irritable: 0 = Not at all Feeling afraid as if something awful might happen: 0 = Not at all Total YEIMI-7 score (0-4 normal; 5-9 mild; 10-14 moderate; 15-21 severe): 0 Source: Developed by Drs. Terrance Colbert, Jeanette Horton, Mark Bryson and colleagues, with an educational titi from [employer]. YEIMI-7 Assessment Billing YEIMI-7 Assessment Tool: YEIMI-7 Assessment 19530 Review of Systems Const Denies chills, Denies fever(s) and Denies headache(s) ENT Denies headache(s), Denies nasal discharge, Denies nasal obstruction, Denies odynophagia and Denies sinus pain Card Denies chest pain at rest and Denies chest pain with activity Resp Denies cough and Denies hemoptysis GI Denies diarrhea, Denies odynophagia, Denies vomiting and Denies hematemesis Reports as per HPI Skin/Breast Reports as per HPI Neuro Denies Neuro-related abnormal movements, Denies Abnormal speech present, Denies headache(s) and Denies Sensory deficit (Neuro) Psych Denies mood swings and Denies paranoia Endo Reports as per HPI Lenard/Lymph Reports as per HPI Aller/Immun Reports as per HPI Physical exam (Primary Care) Vital Signs: Last Vital Signs Pulse 66 12/05/23 10:03 BP 116/68 12/05/23 10:03 Pulse Ox 99 12/05/23 10:03 Oxygen Delivery Method Room Air 12/05/23 10:03 BMI result Body Mass Index 20.3 Tobacco/Smoking Status: Tobacco use Status Tobacco use date assessed 12/05/23 12/05/23 10:09 Patient Tobacco Use Status Current everyday Tobacco 12/05/23 10:09 e-Cigarette/Vaping Use Never Used 12/05/23 10:09 PHQ-9: PHQ-9 Score PHQ-9: Total score 0 12/05/23 10:25 Depression Screening Interpretation: Negative Thrive Assessment: Date of Thrive Assessment Date Thrive assessed 12/05/23 12/05/23 10:09 Currently or been in a relationship where the following occur: No concerns reported Const General: cooperative, comfortable and no acute distress Orientation/consciousness: patient oriented x3 HENMT Head: Yes normocephalic and Yes atraumatic Eyes General: appearance normal, both eyes and all related structures Neck Neck: Yes supple and No lymphadenopathy Thyroid: Thyroid normal Lymphatic: no lymphadenopathy noted Resp Effort & Inspection: normal respiratory effort and able to speak in complete sentences Auscultation: clear to auscultation bilaterally Cardio Heart sounds: S1 normal heart sound present and S2 normal heart sound present GI Palpation (GI): Soft to palpation and nontender Auscultation: normal bowel sounds General: Yes no CVA tenderness Back/Spine/Pelvis Back: no CVA tenderness Skin General skin exam: elasticity normal and turgor normal Neuro General: patient oriented x3 Speech: No Abnormal speech present Sensory Exam: No Sensory deficit (Neuro) Assessment and Plan Assessment & Plan (1) Encounter for general adult medical examination with abnormal findings: Code(s): Z00.01 - Encounter for general adult medical examination with abnormal findings (2) Anemia: Code(s): D64.9 - Anemia, unspecified Qualifiers: Anemia type: unspecified type Qualified Code(s): D64.9 - Anemia, unspecified (3) Ankylosing spondylitis: Code(s): M45.9 - Ankylosing spondylitis of unspecified sites in spine Qualifiers: Ankylosing spondylitis location: lumbar region Qualified Code(s): M45.6 - Ankylosing spondylitis lumbar region (4) Uveitis: Code(s): H20.9 - Unspecified iridocyclitis (5) Chronic GERD: Code(s): K21.9 - Gastro-esophageal reflux disease without esophagitis (6) Gastritis: Code(s): K29.70 - Gastritis, unspecified, without bleeding Qualifiers: Gastritis type: other gastritis Chronicity: chronic Gastritis bleeding: with bleeding Qualified Code(s): K29.51 - Unspecified chronic gastritis with bleeding (7) Methadone dependence: Code(s): F11.20 - Opioid dependence, uncomplicated (8) History of opioid abuse: Code(s): F11.11 - Opioid abuse, in remission Plan Patient is a 43-year-old male with a history of ankylosing spondylitis and history of opioid addiction on methadone currently presented to emergency room on 11/10/2023 with a chief complaint of help with detox as he was having withdrawal. Patient was accepted at [facility] for detox but then was declined as he needed higher skilled care and they could not provide that. 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 for ankylosing spondylitis treatment And he has also developed blurring of vision and need to see an eye doctor Patient have peripheral vascular disease with chronic skin changes both lower extremity He uses canes both hands to ambulate and need a transportation paperwork filled He came in today with his mother who tells me that he is very stubborn and does not follow directions He was not able to get on examination table because of his back pain Exam was limited Orders: Orders Ferritin Today D64.9 - Anemia, unspecified, F11.11 - Opioid abuse, in remission, F11.20 - Opioid dependence, uncomplicated, K21.9 - Gastro-esophageal reflux disease without esophagitis, K29.70 - Gastritis, unspecified, without bleeding, M45.9 - Ankylosing spondylitis of unspecified sites in spine, Z00.01 - Encounter for general adult medical examination with abnormal findings Complete Blood Count Auto Diff Today D64.9 - Anemia, unspecified, F11.11 - Opioid abuse, in remission, F11.20 - Opioid dependence, uncomplicated, K21.9 - Gastro-esophageal reflux disease without esophagitis, K29.70 - Gastritis, unspecified, without bleeding, M45.9 - Ankylosing spondylitis of unspecified sites in spine, Z00.01 - Encounter for general adult medical examination with abnormal findings Comprehensive Met. Panel Today D64.9 - Anemia, unspecified, F11.11 - Opioid abuse, in remission, F11.20 - Opioid dependence, uncomplicated, K21.9 - Gastro- esophageal reflux disease without esophagitis, K29.70 - Gastritis, unspecified, without bleeding, M45.9 - Ankylosing spondylitis of unspecified sites in spine, Z00.01 - Encounter for general adult medical examination with abnormal findings LDL Cholesterol Direct Today D64.9 - Anemia, unspecified, F11.11 - Opioid abuse, in remission, F11.20 - Opioid dependence, uncomplicated, K21.9 - Gastro- esophageal reflux disease without esophagitis, K29.70 - Gastritis, unspecified, without bleeding, M45.9 - Ankylosing spondylitis of unspecified sites in spine, Z00.01 - Encounter for general adult medical examination with abnormal findings Vitamin D 25-OH (D2 and D3) Today D64.9 - Anemia, unspecified, F11.11 - Opioid abuse, in remission, F11.20 - Opioid dependence, uncomplicated, K21.9 - Gastro- esophageal reflux disease without esophagitis, K29.70 - Gastritis, unspecified, without bleeding, M45.9 - Ankylosing spondylitis of unspecified sites in spine, Z00.01 - Encounter for general adult medical examination with abnormal findings Vitamin B12 Today D64.9 - Anemia, unspecified, F11.11 - Opioid abuse, in remission, F11.20 - Opioid dependence, uncomplicated, K21.9 - Gastro-esophageal reflux disease without esophagitis, K29.70 - Gastritis, unspecified, without bleeding, M45.9 - Ankylosing spondylitis of unspecified sites in spine, Z00.01 - Encounter for general adult medical examination with abnormal findings TSH reflex Free T4 Today D64.9 - Anemia, unspecified, F11.11 - Opioid abuse, in remission, F11.20 - Opioid dependence, uncomplicated, K21.9 - Gastro-esophageal reflux disease without esophagitis, K29.70 - Gastritis, unspecified, without bleeding, M45.9 - Ankylosing spondylitis of unspecified sites in spine, Z00.01 - Encounter for general adult medical examination with abnormal findings Folate Today D64.9 - Anemia, unspecified, F11.11 - Opioid abuse, in remission, F11.20 - Opioid dependence, uncomplicated, K21.9 - Gastro-esophageal reflux disease without esophagitis, K29.70 - Gastritis, unspecified, without bleeding, M45.9 - Ankylosing spondylitis of unspecified sites in spine, Z00.01 - Encounter for general adult medical examination with abnormal findings Referrals Hematology & Oncology Referral D64.9 - Anemia, unspecified Rheumatology Referral M45.9 - Ankylosing spondylitis of unspecified sites in spine Ophthalmology Referral H20.9 - Unspecified iridocyclitis Medications: New omeprazole 40 mg PO DAILY 90 caps 0RF ferrous sulfate 325 mg PO TID 90 days 270 tabs 0RF Coding Level of Care Code Est Pt Level 4 (42185) Est Pt Prev Care 40-64y(30805) Diagnoses Encounter for general adult medical examination with abnormal findings Z00.01 Anemia, unspecified type D64.9 Anemia type: unspecified type Ankylosing spondylitis of lumbar region M45.6 Ankylosing spondylitis location: lumbar region Uveitis H20.9 Chronic GERD K21.9 Other chronic gastritis with hemorrhage K29.51 Gastritis type: other gastritis Chronicity: chronic Gastritis bleeding: with bleeding Methadone dependence F11.20 History of opioid abuse F11.11 Additional Codes YEIMI-7 Assessment Billing - YEIMI-7 Assessment Tool: YEIMI-7 Assessment 97647 ([id number])
== END 2023-12-05 10:29 | disposition home or self-care (01) ==
PROVIDERS: PCP Internal Medicine; Visit Provider Internal Medicine
DX: Z00.00 Encounter for general adult medical examination without abnormal findings (principal); M45.6 Ankylosing spondylitis lumbar region; F11.20 Opioid dependence, uncomplicated; D64.9 Anemia, unspecified; H20.9 Unspecified iridocyclitis; K21.9 Gastro-esophageal reflux disease without esophagitis; K29.51 Unspecified chronic gastritis with bleeding
CPT/HCPCS: 99214; 99396

== ENCOUNTER 2023-12-05 10:28 | Outpatient (REF) | payer OTHER, SELFPAY ==
[2023-12-05 13:18] LABS: MANUAL DIFF FLAG NO
[2023-12-05 13:33] LABS: Basophils Percent Auto 0.5 % (0-2); Eosinophils Absolute Auto 0.2 X10*3/uL (0.0-0.4); Eosinophils Percent Auto 2.9 % (0-4); Hematocrit 26.6 % (42.0-52.0); Hemoglobin 7.4 g/dl (14.0-18.0); Imm Gran Abs Auto 0.02 X10*3/uL (0.00-0.03); Imm Gran Pct Auto 0.3 % (0.0-0.4); Lymphocytes Absolute Auto 1.2 X10*3/uL (1.2-4.9); Lymphocytes Percent Auto 18.6 % (20-40); Mean Corpuscular HGB Conc 27.8 g/dl (31.0-36.0); Mean Corpuscular Hemoglobin 17.8 pg (27.0-33.0); Mean Platelet Volume 8.6 fL (9.4-12.4); Monocytes Absolute Auto 0.6 X10*3/uL (0.1-1.2); Monocytes Percent Auto 8.9 % (2-11); Neutrophils Absolute Auto 4.5 x10*3/uL (2.0-8.3); Neutrophils Percent Auto 68.8 % (45-73); Platelet Count 455 X10*3/uL (160-400); Red Blood Count 4.16 X10*6/uL (4.60-5.80); Red Cell Distribution Width 19.9 % (11.0-16.0); White Blood Count 6.5 X10*3/uL (4.8-10.8)
[2023-12-05 13:34] LABS: Mean Corpuscular Volume 63.9 fL (80.0-98.0)
[2023-12-05 14:25] LABS: Alanine Aminotransferase 13 U/L (0-40); Albumin Level 3.8 g/dL (3.5-5.0); Alkaline Phosphatase 95 U/L (39-117); Anion Gap 14 (12-20); Aspartate Amino Transferase 19 U/L (5-37); Bilirubin Total 0.2 mg/dL (0.0-1.0); Blood Urea Nitrogen 23 mg/dL (9-16); Calcium 10.5 mg/dL (8.4-10.2); Carbon Dioxide 27 mmol/L (22-29); Chloride 99 mmol/L (96-108); Estimated Glomerular Filt Rate > 60; Glucose Random 81 mg/dL (60-115); Potassium 4.7 mmol/L (3.3-5.1); Sodium 135 mmol/L (135-145); Total Protein 9.4 g/dL (6.5-8.0)
[2023-12-05 14:31] LABS: Ferritin 27 ng/mL (20-250)
[2023-12-05 14:35] LABS: Folate 10.8 ng/mL (> or = 4.0); Vitamin B12 462 pg/mL (200-900)
[2023-12-07 03:08] LABS: LDL Cholesterol Direct 59 mg/dL (<100)
[2023-12-10 17:09] LABS: Vitamin D 25-OH, D2 <4 ng/mL; Vitamin D 25-OH, D3 45 ng/mL; Vitamin D 25-OH, Total 45 ng/mL (30-100)
== END 2023-12-05 10:29 | disposition home or self-care (01) ==
LOC: HO.HMGCLDS 10:28
PROVIDERS: PCP Internal Medicine; Visit Provider Internal Medicine
DX: Z00.01 Encounter for general adult medical examination with abnormal findings (principal); F11.11 Opioid abuse, in remission; K29.70 Gastritis, unspecified, without bleeding; K21.9 Gastro-esophageal reflux disease without esophagitis; M45.9 Ankylosing spondylitis of unspecified sites in spine; D64.9 Anemia, unspecified
CPT/HCPCS: 36415; 80053; 82306; 82607; 82728; 82746; 83721; 84443; 85025

== ENCOUNTER → 2023-12-18 08:30 | Outpatient (BNV) | payer OTHER, SELFPAY | PROVIDERS: PCP Internal Medicine; Referring Provider Internal Medicine; Visit Provider Internal Medicine Medical Oncology | DX: D64.9 Anemia, unspecified (principal) | CPT/HCPCS: 99204; 99213 ==

== ENCOUNTER 2024-01-23 10:08 | Outpatient (REF) | payer OTHER, SELFPAY ==
--- NOTE | ~2024-01-23 | XR_ITS ---
EXAMINATION: XR ANKLE RIGHT 2 VIEWS CLINICAL INFORMATION: Ankylosing spondylitis lumbar region M45.6. COMPARISON: XR Right foot 01/23/2024 TECHNIQUE: AP and oblique views of the right ankle. FINDINGS: No fracture. Alignment is anatomic. No erosions. Joint spaces are maintained. Soft tissues are normal. XR/XR ankle RT min 3V IMPRESSION: No significant osseous changes to explain patient's pain symptoms. Electronically signed by: Doug Leong MD 03/31/2024 09:03 PM [facility]
--- NOTE | ~2024-01-23 | XR_ITS ---
EXAMINATION: XR FOOT LEFT 2 VIEWS CLINICAL INFORMATION: Ankylosing spondylitis lumbar region M45.6. COMPARISON: XR Left ankle 01/23/2024. TECHNIQUE: AP and lateral views of the left foot. FINDINGS: Bones are diffusely demineralized. Pes planus. Severe lateral subluxations at the first, second, third and fourth metatarsophalangeal joints with associated degenerative changes. Moderate degenerative changes in the midfoot. XR/XR foot LT min 3V IMPRESSION: 1. Bones are diffusely demineralized. 2. Pes planus. 3. Severe lateral subluxations at the first, second, third and fourth metatarsophalangeal joints with associated degenerative changes. Electronically signed by: Felisa Hernadez MD 04/06/2024 08:14 AM [facility]
--- NOTE | ~2024-01-23 | XR_ITS ---
EXAMINATION: XR HAND/WRIST, LEFT CLINICAL INFORMATION: Ankylosing spondylitis. COMPARISON: None available. TECHNIQUE: PA, lateral, oblique, and scaphoid views of the left hand and wrist. FINDINGS: Moderate joint space narrowing with bony remodeling at the radiocarpal and distal radioulnar joints. More mild joint space narrowing with small marginal osteophytes at the triscaphe and first carpal metacarpal joint. Joint space narrowing with erosions at the first metacarpophalangeal and interphalangeal joints. Periarticular erosions partially visualized at the remaining metacarpophalangeal joints. XR/XR hand wrist LT IMPRESSION: 1. Moderate degenerative arthritis at the radiocarpal and distal radioulnar joints with more mild degenerative arthritis at the triscaphe and first carpometacarpal joints. 2. Joint space narrowing with erosions at the first metacarpophalangeal and interphalangeal joints. Periarticular erosions at the remaining metacarpophalangeal joints. Electronically signed by: Chacorta Cotto MD 04/09/2024 09:26 AM [facility]
--- NOTE | ~2024-01-23 | XR_ITS ---
EXAMINATION: XR ELBOW RIGHT 3 VIEWS CLINICAL INFORMATION: Ankylosing spondylitis lumbar region M45.6. COMPARISON: None available TECHNIQUE: AP, lateral, and oblique views of the right elbow. FINDINGS: Bone mineralization within normal limits. Alignment maintained. Minimal spurring along the radial head. XR/XR elbow RT min 3V IMPRESSION: Minimal spurring along the radial head. Electronically signed by: Felisa Hernadez MD 04/06/2024 06:59 AM [facility]
--- NOTE | ~2024-01-23 | XR_ITS ---
EXAMINATION: XR ANKLE LEFT 2 VIEWS CLINICAL INFORMATION: Ankylosing spondylitis lumbar region M45.6. COMPARISON: XR Left foot 01/23/2024 TECHNIQUE: AP, oblique views of the left ankle. FINDINGS: No fracture. Alignment is anatomic. No erosions. Joint spaces are maintained. Soft tissues are normal. XR/XR ankle LT min 3V IMPRESSION: No fracture or dislocation. Electronically signed by: Dogu Leong MD 03/28/2024 11:34 AM [facility]
--- NOTE | ~2024-01-23 | XR_ITS ---
EXAMINATION: XR ELBOW LEFT 3 VIEWS CLINICAL INFORMATION: Ankylosing spondylitis lumbar region M45.6. COMPARISON: None available TECHNIQUE: AP, lateral, and oblique views of the left elbow. FINDINGS: The bones and soft tissues are normal. No fracture or joint effusion. Alignment is anatomic. Joint spaces are maintained. XR/XR elbow LT min 3V IMPRESSION: Normal left elbow. Electronically signed by: Elder Sterling MD 03/10/2024 12:27 PM [facility]
--- NOTE | ~2024-01-23 | XR_ITS ---
EXAMINATION: XR HAND/WRIST, RIGHT CLINICAL INFORMATION: Ankylosing spondylitis. COMPARISON: Report from right hand radiographs dated 11/13/2010. TECHNIQUE: PA, lateral, oblique, and scaphoid views of the right hand and wrist. FINDINGS: Severe radiocarpal joint space narrowing with subchondral sclerosis, subchondral cystic change, and marginal osteophytes. Widening of the lunotriquetral joint space which likely indicates an underlying ligament tear. Widening of the distal radioulnar joint with erosion/blunting of the distal ulna. Joint space narrowing with bony remodeling and central erosions at the triscaphe, first carpometacarpal, and first interphalangeal joints. No acute fracture or dislocation. No abnormal soft tissue calcification. XR/XR hand wrist RT IMPRESSION: 1. Widening of the lunotriquetral joint space, which likely indicates an underlying ligament tear. 2. Widening of the distal radioulnar joint with erosion/blunting of the distal ulna. 3. Severe degenerative arthritis at the radiocarpal, triscaphe, first carpometacarpal, and first interphalangeal joints. Electronically signed by: Chacorta Cotto MD 04/09/2024 09:23 AM [facility]
--- NOTE | ~2024-01-23 | XR_ITS ---
EXAMINATION: XR SACROILIAC JOINTS 3 VIEWS CLINICAL INFORMATION: Ankylosing spondylitis lumbar region M45.6. COMPARISON: None available. TECHNIQUE: 3 views of the sacroiliac joints FINDINGS: Degenerative changes in the imaged lower lumbar spine. Visualization limited due to overlying stool-filled bowel. [id number] degenerative changes on limited views of the right hip. Severe degenerative changes on limited views of the left hip with obliteration of the joint space, subchondral sclerosis and remodeling. Dedicated views of the hips recommended for further evaluation. Probable fusion of the sacroiliac joints. XR/XR sacroiliac joint min 3V IMPRESSION: 1. Probable fusion of the sacroiliac joints. 2. Severe degenerative changes on limited views of the left hip with obliteration of the joint space, subchondral sclerosis and remodeling. Dedicated views of the hips recommended for further evaluation. Electronically signed by: Felisa Hernadez MD 04/06/2024 08:40 AM [facility]
--- NOTE | ~2024-01-23 | XR_ITS ---
EXAMINATION: XR FOOT RIGHT 2 VIEWS CLINICAL INFORMATION: Ankylosing spondylitis lumbar region M45.6. COMPARISON: None available. TECHNIQUE: AP and lateral views of the right foot. Bones are diffusely demineralized. Pes planus. Severe lateral subluxations at the first, second, third and fourth metatarsophalangeal joints with associated degenerative changes. Moderate degenerative changes in the midfoot. XR/XR foot RT min 3V IMPRESSION: 1. Bones are diffusely demineralized. 2. Pes planus. 3. Severe lateral subluxations at the first, second, third and fourth metatarsophalangeal joints with associated degenerative changes. Electronically signed by: Felisa Hernadez MD 04/06/2024 08:23 AM [facility]
[2024-01-23 11:36] LABS: MANUAL DIFF FLAG NO
[2024-01-23 11:45] LABS: Basophils Absolute Auto 0.1 X10*3/uL (0.0-0.2); Basophils Percent Auto 0.7 % (0-2); Eosinophils Absolute Auto 0.2 X10*3/uL (0.0-0.4); Eosinophils Percent Auto 2.8 % (0-4); Hematocrit 29.1 % (42.0-52.0); Imm Gran Abs Auto 0.02 X10*3/uL (0.00-0.03); Imm Gran Pct Auto 0.3 % (0.0-0.4); Lymphocytes Absolute Auto 1.3 X10*3/uL (1.2-4.9); Lymphocytes Percent Auto 17.3 % (20-40); Mean Corpuscular HGB Conc 30.9 g/dl (31.0-36.0); Mean Corpuscular Hemoglobin 20.6 pg (27.0-33.0); Mean Corpuscular Volume 66.6 fL (80.0-98.0); Mean Platelet Volume 8.2 fL (9.4-12.4); Monocytes Absolute Auto 0.7 X10*3/uL (0.1-1.2); Monocytes Percent Auto 10.1 % (2-11); Neutrophils Percent Auto 68.8 % (45-73); Platelet Count 431 X10*3/uL (160-400); Red Blood Count 4.37 X10*6/uL (4.60-5.80); Red Cell Distribution Width 24.5 % (11.0-16.0); White Blood Count 7.2 X10*3/uL (4.8-10.8)
[2024-01-23 12:25] LABS: Erythrocyte Sedimentation Rate 101 MM/HR (0-15)
[2024-01-23 12:38] LABS: Alanine Aminotransferase 11 U/L (0-40); Albumin Level 3.6 g/dL (3.5-5.0); Alkaline Phosphatase 134 U/L (39-117); Anion Gap 12 (12-20); Aspartate Amino Transferase 31 U/L (5-37); Bilirubin Total 0.2 mg/dL (0.0-1.0); Blood Urea Nitrogen 28 mg/dL (9-16); C Reactive Protein 14.55 mg/dL (< or = 0.50); Calcium 10.1 mg/dL (8.4-10.2); Carbon Dioxide 28 mmol/L (22-29); Chloride 100 mmol/L (96-108); Estimated Glomerular Filt Rate > 60; Glucose Random 89 mg/dL (60-115); Potassium 4.8 mmol/L (3.3-5.1); Sodium 135 mmol/L (135-145); Total Protein 9.2 g/dL (6.5-8.0)
[2024-01-23 12:48] LABS: HBc Num1 0.38 S/CO (0.00-0.79); HBsAGNum1 0.34 S/CO (0.00-0.99); HIV AB/AG Nonreactive (Nonreactive); HIV Num 1 0.07 S/CO (0.00-0.99); Hepatitis B Core Antibody Nonreactive (Nonreactive); Hepatitis B Surface Antigen Negative (Negative); ~Hepatitis A Antibody IgM Nonreactive (Nonreactive); ~Hepatitis B Surface Antibody NONREACTIVE (Nonreactive); ~Hepatitis C Antibody Nonreactive (Nonreactive)
[2024-01-26 13:34] LABS: Hepatitis B Viral DNA Qn - cp NOT DETECTED Log IU/mL (NOT DETECTED); Hepatitis B Viral DNA Qn-IU/mL NOT DETECTED (NOT DETECTED)
[2024-01-26 14:28] LABS: HCV Log PCR <1.18 DETECTED Log IU/mL (NOT DETECTED); HepC Viral Load <15 DETECTED IU/mL (NOT DETECTED)
[2024-01-26 18:03] LABS: TS Negative Control Passed; TS Panel A 0; TS Panel B 0; TS Positive Control Passed; TSpotTB Negative (Negative)
[2024-01-29 01:33] LABS: HLA B27 Positive (Negative)
== END 2024-01-23 10:09 | disposition home or self-care (01) ==
LOC: HO.XRAY 10:08
PROVIDERS: PCP Internal Medicine; Visit Provider Student in an Organized Health Care Education/Training Program
DX: M45.6 Ankylosing spondylitis lumbar region (principal); H20.9 Unspecified iridocyclitis; L21.9 Seborrheic dermatitis, unspecified; Z79.891 Long term (current) use of opiate analgesic
CPT/HCPCS: 36415; 72202; 73080; 73110; 73130; 73610; 73630; 80053; 85025; 85652; 86140; 86481; 86704; 86706; 86709; 86803; 86812; 87340; 87389; 87517; 87522; 99202

== ENCOUNTER 2024-01-23 10:08 | Outpatient (AMB) | payer OTHER, SELFPAY ==
--- NOTE | 2024-01-23 08:52 | A.OFFVIS_ITS ---
Vital Signs 3 01/23/24 10:13 Height 5 ft 4 in Weight 115 lb BMI 19.7 BP 102/60 Blood Pressure Location Lt brachial Position Sitting Pulse 75 Pulse Source Pulse Oximeter Pulse Oximetry (%) 99 Oxygen Delivery Method Room Air Intake Visit Reasons: Ankylosing spondylitis/LM Intake Note: Patient presents as a new patient internally referred by PCP for ankylosing spondylitis. 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 Patient states that when he was in his mid 20s (around ) he started to have lower back pain which she initially attributed to his work but this pain progressed and he sought medical attention. He was ultimately diagnosed with ankylosing spondylitis and started on methotrexate, Humira (with minimal effect) and subsequently Enbrel. He was noncompliant with his medications and ultimately self discontinued his medications and sought to medicate himself with fentanyl on the street. And he has been doing this for several years. Within the past year he has gotten clean is currently in a methadone program and he is looking to establish care for his ankylosing spondylitis. His ank spond has been complicated by recurrent uveitis. Over the years he has had several deformities that have progressed and now he has to walk with 2 canes. [facility] Medical History Chronic GERD Uveitis Asthma, moderate Tobacco abuse Ankylosing spondylitis Surgical History No pertinent past surgical history Family History Father Lymphoma Mother HTN (hypertension) Sister No problems noted. Social History Housing: House Alcohol intake: current Alcohol intake frequency: holidays/special occasions only Patient Tobacco Use Status: Current everyday Tobacco user Cigarette Packs Per Day: 0.5 e-Cigarette/Vaping Use: Never Used service: No Current occupational status: disabled Cognitive needs: No Hearing needs: No Vision needs: No Review of Systems Const Details: Review of Systems Constitutional: Denies fever, chills, weight loss ENT: Denies vision changes, eye pain or eye redness, dental caries, dry mouth GI: Denies nausea, vomiting, diarrhea, abdominal pain, change in BM Pulm: Denies SOB, COX, hemoptysis, wheezing Cards: Denies chest pain, palpitations Skin: Denies Raynaud's, rash, nail changes, photosensitivity, [employer] LO[employer]ER: Denies headaches, weakness, paresthesias, recurrent falls MSK: as per HPI All other systems reviewed and are unremarkable except noted above Physical Exam Vital Signs: Last Vital Signs Pulse 75 01/23/24 10:13 BP 102/60 01/23/24 10:13 Pulse Ox 99 01/23/24 10:13 Oxygen Delivery Method Room Air 01/23/24 10:13 BMI result Body Mass Index 19.7 Physical Examination Patient well appearing and in no apparent painful distress Constitutional Mucous membranes pink and moist patient alert and cooperative HEENT Conjunctiva and sclera clear. ?Pupils equal round and reactive to light. ?No lymphadenopathy. ?Dental caries Respiratory System Normal respiratory effort and able to speak in complete sentences. ?Clear to auscultation bilaterally. ?No crackles, rales, rhonchi, wheezes heard. Cardiac System Regular rate and rhythm. ?S1 and S2 heard no murmurs. ?Radial pulses intact bilaterally MSK Hands:.??Flexion contractures at the PIPs DIPs involving the right and left 2nd- 5th PIPs. Ulnar deviation at the level of the MCPs bilaterally. Squaring of the 1st CMC. Unable to make a fist Wrists: Swelling and tenderness to palpation of the right wrist with synovial hypertrophy noted. Range of motion about 15 degrees. Left wrist with no swelling or tenderness to palpation but also with limited range of motion to about 15-30 degrees. Elbows: No swelling or tenderness to palpation. Held in 45-50 degree flexion bilaterally unable to extend past this Shoulders: Decreased range of motion to active movement. Range of motion is a little bit better with passive movement but still decreased. Knees:.???Normal pain-free range of motion without tenderness, swelling, increased warmth or erythema.?No effusion or crepitations Ankles:.??Normal pain-free range of motion without tenderness, swelling, increased warmth or erythema. Feet:.? Hallux deformities noted to the feet with deviation at the level of the MTPs. Skin Drew scales noted to scalp. Consistent with seborrheic dermatitis Edema and white scales noted to bilateral lower extremities on an erythematous base.: Psoriasis versus xerosis Results Reviewed Results Reviewed: Laboratory Tests 01/13/24 09:24 WBC 7.1 RBC 4.94 D Hgb 10.0 L D Hct 33.2 L D Plt Count 396 Sodium 138 Potassium 5.0 Chloride 102 Carbon Dioxide 28 BUN 23 H Creatinine 1.07 AST 16 ALT 14 Assessment & Plan Assessment & Plan (1) Ankylosing spondylitis: Comment: Diagnosed in his 20s Previously on methotrexate, Humira and Enbrel with limited efficacy Lost to follow-up and 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 Starting on infliximab and methotrexate Code(s): M45.9 - Ankylosing spondylitis of unspecified sites in spine Category: Medical Qualifiers: Ankylosing spondylitis location: lumbar region Qualified Code(s): M45.6 - Ankylosing spondylitis lumbar region Plan: #Ankylosing Spondylitis Patient with ankylosing spondylitis and all of the erosions and complications associated with this including uveitis. This is a really severe progression of his disease and we will need to restart patient on immunosuppression. Since he did not have much efficacy with Humira in the past we will start him on infliximab infusions. We will also add methotrexate which will help with his peripheral disease as well as preventing antibody formation. Check labs and x-rays today. Send to Occupational therapy for assistance with assistive devices and sent to physical therapy (2) Uveitis: Code(s): H20.9 - Unspecified iridocyclitis Category: Medical Plan: #Uveitis Refer to Ophthalmology Start infliximab (3) Seborrheic dermatitis of scalp: Code(s): L21.9 - Seborrheic dermatitis, unspecified Category: Medical Plan: #Seborrheic Dermatitis Refer to Dermatology Also has rash on legs that is concerning for psoriasis. We will follow up with Dermatology for that as well. Plan I spent 60 minutes reviewing the record and labs, seeing the patient, discussing the treatment plan and documenting in the medical record ? Orders: Orders 2 XR elbow LT min 3V Today H20.9 - Unspecified iridocyclitis, M45.6 - Ankylosing spondylitis lumbar region XR ankle LT min 3V Today H20.9 - Unspecified iridocyclitis, M45.6 - Ankylosing spondylitis lumbar region Comprehensive Met. Panel Today H20.9 - Unspecified iridocyclitis, M45.6 - Ankylosing spondylitis lumbar region C Reactive Protein Today H20.9 - Unspecified iridocyclitis, M45.6 - Ankylosing spondylitis lumbar region HIV Ab/Ag Today H20.9 - Unspecified iridocyclitis, M45.6 - Ankylosing spondylitis lumbar region T Spot TB Today H20.9 - Unspecified iridocyclitis, M45.6 - Ankylosing spondylitis lumbar region PT Evaluation and Treatment Today M45.6 - Ankylosing spondylitis lumbar region XR elbow RT min 3V Today H20.9 - Unspecified iridocyclitis, M45.6 - Ankylosing spondylitis lumbar region XR hand wrist RT Today H20.9 - Unspecified iridocyclitis, M45.6 - Ankylosing spondylitis lumbar region XR hand wrist LT Today H20.9 - Unspecified iridocyclitis, M45.6 - Ankylosing spondylitis lumbar region XR ankle RT min 3V Today H20.9 - Unspecified iridocyclitis, M45.6 - Ankylosing spondylitis lumbar region XR foot RT min 3V Today H20.9 - Unspecified iridocyclitis, M45.6 - Ankylosing spondylitis lumbar region XR foot LT min 3V Today H20.9 - Unspecified iridocyclitis, M45.6 - Ankylosing spondylitis lumbar region XR sacroiliac joint min 3V Today H20.9 - Unspecified iridocyclitis, M45.6 - Ankylosing spondylitis lumbar region Complete Blood Count Auto Diff Today H20.9 - Unspecified iridocyclitis, M45.6 - Ankylosing spondylitis lumbar region Hepatitis A,B,C Profile Today H20.9 - Unspecified iridocyclitis, M45.6 - Ankylosing spondylitis lumbar region Hepatitis C Viral Load Today H20.9 - Unspecified iridocyclitis, M45.6 - Ankylosing spondylitis lumbar region Hepatitis B Viral DNA Qn Today H20.9 - Unspecified iridocyclitis, M45.6 - Ankylosing spondylitis lumbar region Erythrocyte Sedimentation Rate Today H20.9 - Unspecified iridocyclitis, M45.6 - Ankylosing spondylitis lumbar region HLA B27 Today H20.9 - Unspecified iridocyclitis, M45.6 - Ankylosing spondylitis lumbar region OT Evaluation and Treatment Today M45.6 - Ankylosing spondylitis lumbar region Referrals 2 Infusion Center Notification M45.6 - Ankylosing spondylitis lumbar region Dermatology Referral L21.9 - Seborrheic dermatitis, unspecified, L85.3 - Xerosis cutis Ophthalmology Referral H20.9 - Unspecified iridocyclitis, M45.6 - Ankylosing spondylitis lumbar region Medications: New 2 methotrexate sodium 15 mg (6 x 2.5 mg) PO QWEEK 90 days 78 tabs 1RF M45.6 - Ankylosing spondylitis lumbar region folic acid 1 mg PO DAILY 90 days 90 tabs 1RF M45.6 - Ankylosing spondylitis lumbar region Coding Level of Care Code New Pt Level 5 (88965) Complex EM visit Add On G2211 Diagnoses Ankylosing spondylitis of lumbar region M45.6 Ankylosing spondylitis location: lumbar region Uveitis H20.9 Seborrheic dermatitis of scalp L21.9
[2024-01-23 10:13] VITALS: BP 102/60; PULSE 75; O2SAT 99; BMI 19.7
== END 2024-01-23 10:58 | disposition home or self-care (01) ==
PROVIDERS: PCP Internal Medicine; Visit Provider Student in an Organized Health Care Education/Training Program
DX: M45.6 Ankylosing spondylitis lumbar region (principal); H20.9 Unspecified iridocyclitis; L21.9 Seborrheic dermatitis, unspecified
CPT/HCPCS: 99205; G2211

== ENCOUNTER 2024-02-09 07:56 | Outpatient (RCR) | payer OTHER, SELFPAY ==
--- NOTE | 2024-02-09 11:21 | MHC.PT.EP ---
[facility] [place] Office [place] Office [place] Office [address] Catherine Rivera [address] [phone] F: [phone] F: [phone] F: [phone] F: [phone] Physical Therapy Plan of Care Date of Evaluation: 02/09/24 Date of Surgery: Diagnosis: This is a 43 yo male presenting to skilled PT with a script for ankylosing spondylitis lumbar region. Assessment: This is a 43 yo male presenting to skilled PT with a script for ankylosing spondylitis lumbar region. When the patient was in his mid 20s (around ) he started to have lower back pain that progressed and he sought medical attention where he was ultimately diagnosed with ankylosing spondylitis. He was started on methotrexate, Humira (with minimal effect) and subsequently Enbrel. He was noncompliant with his medications and ultimately self discontinued his medications. He sought to medicate himself with fentanyl on the street and he has been doing this for several years. Within this past year he has gotten clean is currently in a methadone program as well as looking to establish care for his ankylosing spondylitis. Of note, his diagnosis has been complicated by recurrent uveitis and over the years he has had several deformities that have progressed and now he has to walk with 2 canes (he has a rollator but prefers the canes). He has had PT about 5 years ago, this was not helpful for him. He has pain all over . Pain increases with sitting and standing, sleeping. Pain is 9/10. constant. Pain is dull, achy and persistent. He has an adjustable bed at home. He lives with his parents and sister/nephew at home. His nephew is his WOOD SETTER. He needs total assist for hygiene, ADLs, IADLs and housework. He has a commode and a walk-in shower (newly remodeled for disability). He has a few stairs to enter the home. His mom drove him today but he states that both of his parent's health are declining. He is on disability. He also reports inability to make out shapes or objects due to vision and he needed cues for navigating the clinic. He also stated that the cold weather makes it harder for him to move. He is concerned about his capabilities to perform PT. Assessment reveals pain that ranges from up to a 9/10 at the worst. Patient annitaos severely decreased gross ROM from cervical spine to his ankles. He demos contractures in his larger joints including elbows, knees, shoulders and hips. Due to lack of ROM PT was unable to really assess strength appropriately. He was unable to sit in a chair in the clinic and refused to lay on the mat as he was unable to and this caused him too much pain during his x-rays. Full evaluation was very difficult to perform. His posture is very kyphotic with forward head and rounded shoulders. For the eval he leaned up against an elevated mat. He reports that he does not feel like he will achieve too much in the outpatient environment and I agree. At this point I would recommend a PT consult at home (home PT) as he has many factors that impair him from thriving in the outpatient facility including vision, transportation, limitations with transfers and overall physical limitations for positioning and equipment use. Home PT will be able to assess his environment, help him to make adjustments to improve his overall function at home and work with him on a program that would allow him to position himself comfortably and appropriately. Based on functional limitations, impaired QOL and pain tolerance patient would benefit from an home PT referral. Frequency and Duration: The patient will be seen Short Term Goals: NA Heat Engineering Teacher Goals: NA Treatment Plan: Modalities to reduce pain, spasms and effusion. Manual therapy to restore motion and function. Therapeutic exercise to improve strength and flexibility. Neuromuscular re-education for posture and balance. Therapeutic activities to return to functional activities of daily living. Electronically signed by: Mireille Renee PT Please sign and return to therapist. Thank you for your referral.
--- NOTE | 2024-03-09 14:43 | MHC.PT.DC ---
[facility] [place] Office [place] Office [place] Office [address] Catherine Rivera [address] [phone] F: [phone] F: [phone] F: [phone] F: [phone] Physical Therapy Discharge Report Diagnosis: This is a 43 yo male presenting to skilled PT with a script for ankylosing spondylitis lumbar region. Date of Surgery: Date of Evaluation: 02/09/24 Date of Discharge: 03/09/24 Treatments to Date: Cancellations to Date: No Shows to Date: Discharge Status: Recommend MD Follow-up Discharge Summary: This is a 43 yo male presenting to skilled PT with a script for ankylosing spondylitis lumbar region. When the patient was in his mid 20s (around ) he started to have lower back pain that progressed and he sought medical attention where he was ultimately diagnosed with ankylosing spondylitis. He was started on methotrexate, Humira (with minimal effect) and subsequently Enbrel. He was noncompliant with his medications and ultimately self discontinued his medications. He sought to medicate himself with fentanyl on the street and he has been doing this for several years. Within this past year he has gotten clean is currently in a methadone program as well as looking to establish care for his ankylosing spondylitis. Of note, his diagnosis has been complicated by recurrent uveitis and over the years he has had several deformities that have progressed and now he has to walk with 2 canes (he has a rollator but prefers the canes). He has had PT about 5 years ago, this was not helpful for him. He has pain all over . Pain increases with sitting and standing, sleeping. Pain is 9/10. constant. Pain is dull, achy and persistent. He has an adjustable bed at home. He lives with his parents and sister/nephew at home. His nephew is his ACID RECOVERY OPERATOR. He needs total assist for hygiene, ADLs, IADLs and housework. He has a commode and a walk-in shower (newly remodeled for disability). He has a few stairs to enter the home. His mom drove him today but he states that both of his parent's health are declining. He is on disability. He also reports inability to make out shapes or objects due to vision and he needed cues for navigating the clinic. He also stated that the cold weather makes it harder for him to move. He is concerned about his capabilities to perform PT. Assessment reveals pain that ranges from up to a 9/10 at the worst. Patient emeli severely decreased gross ROM from cervical spine to his ankles. He demos contractures in his larger joints including elbows, knees, shoulders and hips. Due to lack of ROM PT was unable to really assess strength appropriately. He was unable to sit in a chair in the clinic and refused to lay on the mat as he was unable to and this caused him too much pain during his x-rays. Full evaluation was very difficult to perform. His posture is very kyphotic with forward head and rounded shoulders. For the eval he leaned up against an elevated mat. He reports that he does not feel like he will achieve too much in the outpatient environment and I agree. At this point I would recommend a PT consult at home (home PT) as he has many factors that impair him from thriving in the outpatient facility including vision, transportation, limitations with transfers and overall physical limitations for positioning and equipment use. Home PT will be able to assess his environment, help him to make adjustments to improve his overall function at home and work with him on a program that would allow him to position himself comfortably and appropriately. Based on functional limitations, impaired QOL and pain tolerance patient would benefit from an home PT referral. Electronically signed by: Mireille Renee PT Please sign and return to therapist. Thank you for your referral.
== END 2024-03-09 14:43 | disposition home or self-care (01) ==
LOC: HO.PTCHIC 07:56
PROVIDERS: PCP Internal Medicine; Visit Provider Student in an Organized Health Care Education/Training Program
DX: M45.6 Ankylosing spondylitis lumbar region (principal)
CPT/HCPCS: 97110; 97163

== ENCOUNTER 2024-02-24 08:44 | Outpatient (AMB) | payer OTHER, SELFPAY ==
--- NOTE | 2024-02-24 08:50 | MHC.OFFVIS ---
Vital Signs 02/24/24 08:52 Height 5 ft 4 in Weight 122 lb BMI 20.9 BP 104/64 Blood Pressure Location Lt brachial Position Sitting Pulse 75 Intake Visit Reasons: GI bleeding Intake Note: Kurt presents in the office as a new patient for GI bleeding. CC: He states that he is having some constipation but he takes a stool softener that seems to help. No blood when he has a BM. 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 Allergies hayfever Allergy (Mild, Uncoded 02/24/24 08:50) sneezing, watery HPI HPI GI bleeding: Details: HPI 43-year-old male with a history of ankylosing spondylitis and history of opioid addiction on methadone who I am seeing for assessment He needed a blood transfusion 2 months ago due to low HGB he had hx of erosive esophagitis on EGD in 2019 and was supposed to be on PPI but was off for years, he was having heartburn -severe and now gone with PPI also on iron treatment, no nausea no vomiting no abdominal pain denies melena or bloody stools taking stool softener and it helps the constipation a lot on methadone 60 mg daily he has been taking ibuprofen for years, for his , waiting to get remicade--was on humira in the apst but stopped it because he is stupid ROS: Constitutional : No Weight loss, No Fever, No Chills ENT/Mouth : No sore throat, No Rhinorrhea Eyes: No Swelling, No Redness Cardiovascular : No Chest Pain, No SOB, No Edema Respiratory : No Cough, No Sputum, No Wheezing Gastrointestinal : see HPI Genitourinary : NO Dysuria, No Urinary Frequency, No Hematuria, No Urgency Musculoskeletal : + joint pain, No Myalgias, No Joint Swelling Skin : No Skin Lesions, No rash Neuro : No Weakness, No Numbness, No Dizziness, No Headache Psych : No Anxiety/Panic, No Depression Heme/Lymph: No Bruising, No Lymphadenopathy Endocrine : No Polyuria, No Polydipsia All other systems reviewed and are negative. Medical History Chronic GERD Uveitis Asthma, moderate Tobacco abuse Ankylosing spondylitis Surgical History No pertinent past surgical history Family History no colon cancer hx mum and dad had stomach ulcers Social History smoker ex drug abuse no alcohol use EXAM: GENERAL: The patient is well developed and nontoxic. VITAL SIGNS:see workflow HEENT: Nonicteric sclerae, PERRLA, EOMI. Oropharynx clear. Moist mucous membranes. Conjunctivae appear well perfused. No thyroid mass. CHEST: Chest wall is nontender. HEART: Regular rate and rhythm without murmurs. LUNGS: Clear to auscultation bilaterally. ABDOMEN: Soft, positive bowel sounds, nontender, no organomegaly.no flank tenderness SKIN: No rash, no excessive bruising, petechiae, or purpura. NEUROLOGIC: Cranial nerves II-XII intact without motor/sensory deficit. Psych: normal affect MS: reduced spin flexion A/P: 1/ Anemia -possible 2/2 to prior esophagitis, erosive gastritis and nsaid use --dd: nsaid colitis, crohns PLAN: 1/ stop ibuprofen, can use celebrex prn and tylenol 2/ cont with PPI 3/ repeat EGD 4/ might consider CTe 5/ will go back on remicade soon, 6/ check labs today [facility] Medical History Xerosis of skin Seborrheic dermatitis of scalp Chronic GERD Uveitis Asthma, moderate Tobacco abuse Ankylosing spondylitis Surgical History No pertinent past surgical history Family History Father Lymphoma Mother HTN (hypertension) Sister No problems noted. Social History Housing: House Alcohol intake: current Alcohol intake frequency: holidays/special occasions only Patient Tobacco Use Status: Current everyday Tobacco user Cigarette Packs Per Day: 0.5 e-Cigarette/Vaping Use: Never Used service: No Current occupational status: disabled Cognitive needs: No Hearing needs: No Vision needs: No Physical Exam Vital Signs: Last Vital Signs Pulse 75 02/24/24 08:52 BP 104/64 02/24/24 08:52 BMI result Body Mass Index 20.9 Assessment & Plan Assessment & Plan (1) Anemia: Code(s): D64.9 - Anemia, unspecified Category: Medical Qualifiers: Anemia type: unspecified type Qualified Code(s): D64.9 - Anemia, unspecified Plan: see above Medications: New celecoxib (Celebrex) 200 mg PO BID 60 caps 1RF Coding Level of Care Code New Pt Level 4 (39045) Diagnoses Anemia, unspecified type D64.9 Anemia type: unspecified type
[2024-02-24 08:52] VITALS: BP 104/64; PULSE 75; BMI 20.9
== END 2024-02-24 10:02 | disposition home or self-care (01) ==
PROVIDERS: PCP Internal Medicine; Visit Provider Internal Medicine Gastroenterology
DX: D64.9 Anemia, unspecified (principal)
CPT/HCPCS: 99204

== ENCOUNTER → 2024-02-24 08:44 | Outpatient (BNVA) | payer OTHER, SELFPAY | PROVIDERS: PCP Internal Medicine; Visit Provider Internal Medicine Gastroenterology | DX: D64.9 Anemia, unspecified (principal) | CPT/HCPCS: 99202 ==

== ENCOUNTER 2024-05-04 09:00 | Outpatient (AMB) | payer OTHER, SELFPAY ==
--- NOTE | 2024-05-04 09:03 | A.OFFVIS_ITS ---
Vital Signs 05/04/24 09:13 Height 5 ft 4 in Weight 110 lb 7.225 oz BMI 19.0 BP 120/70 Blood Pressure Location Lt brachial Position Standing Pulse 77 Pulse Source Pulse Oximeter Pulse Oximetry (%) 98 Oxygen Delivery Method Room Air Intake Visit Reasons: follow up Intake Note: Patient presents for follow up. Allergies hayfever Allergy (Mild, Uncoded 02/24/24 08:50) sneezing, watery Medication List - Last Reconciled 05/04/24 by Amisha Schaffer MD celecoxib 200 mg PO BID ferrous sulfate 325 mg PO TID 90 days folic acid 1 mg PO DAILY 90 days methadone 30 mg PO BID methotrexate sodium 15 mg (6 x 2.5 mg) PO QWEEK 90 days omeprazole 40 mg PO DAILY HPI Comments Details: Patient is a 43-year-old man with end stage ankylosing spondylitis c/b uveititis with fusion of SI joints and several joint deformities and 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, who is here today for follow up Interval History: Patient last seen 12/2023 with me. At that time he was establishing care after not being on treatment for his ankylosing spondylitis. At that time he did not show any signs of active disease however he had a history of uveitis and the concern was he could be having on going uveitis. The plan was to start infliximab and methotrexate. He was also sent to physical therapy. Since then he went to physical therapy and was evaluated however was told that he would benefit from home physical therapy. He unfortunately they did not start his infliximab infusions or methotrexate Today, Patient is complaining of worsening vision. Denies any eye pain or eye redness. Otherwise he is overall okay based on what he tells me. Rheumatologic History: Patient states that when he was in his mid 20s (around ) he started to have lower back pain which she initially attributed to his work but this pain progressed and he sought medical attention. He was ultimately diagnosed with ankylosing spondylitis and started on methotrexate, Humira (with minimal effect) and subsequently Enbrel. He was noncompliant with his medications and ultimately self discontinued his medications and sought to medicate himself with fentanyl on the street. And he has been doing this for several years. Within the past year he has gotten clean is currently in a methadone program and he is looking to establish care for his ankylosing spondylitis. His ank spond has been complicated by recurrent uveitis. Over the years he has had several deformities that have progressed and now he has to walk with 2 canes. Current Rheumatology Medication(s): Infliximab 5mg/kg every 6 weeks Methotrexate 15mg weekly Folic acid 1 mg PO daily [facility] Medical History (Updated 05/04/24 @ 09:52 by Amisha Schaffer MD) Encounter for long-term (current) use of NSAIDs Methotrexate, intermediate, current use Encounter for monitoring of infliximab therapy Xerosis of skin Seborrheic dermatitis of scalp Chronic GERD Uveitis Asthma, moderate Tobacco abuse Ankylosing spondylitis Surgical History No pertinent past surgical history Family History Father Lymphoma Mother HTN (hypertension) Sister No problems noted. Social History Housing: House Alcohol intake: current Alcohol intake frequency: holidays/special occasions only Patient Tobacco Use Status: Current everyday Tobacco user Cigarette Packs Per Day: 0.5 e-Cigarette/Vaping Use: Never Used service: No Current occupational status: disabled Cognitive needs: No Hearing needs: No Vision needs: No Review of Systems Const Details: Review of Systems Constitutional: Denies fever, chills, weight loss ENT: Denies vision changes, eye pain or eye redness, dental caries, dry mouth GI: Denies nausea, vomiting, diarrhea, abdominal pain, change in BM Pulm: Denies SOB, COX, hemoptysis, wheezing Cards: Denies chest pain, palpitations Skin: Denies Raynaud's, rash, nail changes, photosensitivity, MANAGER FASHION: Denies headaches, weakness, paresthesias, recurrent falls MSK: as per HPI All other systems reviewed and are unremarkable except noted above Physical Exam Vital Signs: Last Vital Signs Pulse 77 05/04/24 09:13 BP 120/70 05/04/24 09:13 Pulse Ox 98 05/04/24 09:13 Oxygen Delivery Method Room Air 05/04/24 09:13 BMI result Body Mass Index 19.0 Physical Examination Patient well appearing and in no apparent painful distress. Patient examined while standing holding on to 2 canes Constitutional Mucous membranes pink and moist patient alert and cooperative HEENT Conjunctiva and sclera clear. ?Pupils equal round and reactive to light. ?No lymphadenopathy. ?Dental caries Respiratory System Normal respiratory effort and able to speak in complete sentences. ?Clear to auscultation bilaterally. ?No crackles, rales, rhonchi, wheezes heard. Cardiac System Regular rate and rhythm. ?S1 and S2 heard no murmurs. ?Radial pulses intact bilaterally MSK Hands:.??Flexion contractures at the PIPs DIPs involving the right and left 2nd- 5th PIPs. Ulnar deviation at the level of the MCPs bilaterally. Squaring of the 1st CMC. Unable to make a fist. No obvious synovitis Wrists: Swelling and tenderness to palpation of the right wrist with synovial hypertrophy noted. Range of motion about 15 degrees. Left wrist with no swelling or tenderness to palpation but also with limited range of motion to about 15-30 degrees. Elbows: No swelling or tenderness to palpation. Held in 45-50 degree flexion bilaterally unable to extend past this Shoulders: Decreased range of motion to active movement. Range of motion is a little bit better with passive movement but still decreased. Knees:.???Normal pain-free range of motion without tenderness, swelling, increased warmth or erythema.?No effusion or crepitations Ankles:.??Normal pain-free range of motion without tenderness, swelling, in creased warmth or erythema. Feet:.? Hallux deformities noted to the feet with deviation at the level of the MTPs. Results Reviewed Results Reviewed: Laboratory Tests 01/23/24 11:31 WBC 7.2 RBC 4.37 L Hgb 9.0 L Hct 29.1 L Plt Count 431 H ESR 101 H Sodium 135 Potassium 4.8 Chloride 100 Carbon Dioxide 28 BUN 28 H Creatinine 0.95 Calcium 10.1 Total Bilirubin 0.2 AST 31 ALT 11 Alkaline Phosphatase 134 H C-Reactive Protein 14.55 H Total Protein 9.2 H Albumin 3.6 HLA-B27 Positive A Hepatitis A IgM Ab Nonreactive Hep Bs Antigen Negative Hep Bs Antibody NONREACTIVE Hep B Core Total Ab Nonreactive Hep B DNA copies/mL NOT DETECTED Hep B DNA (IU/mL) NOT DETECTED Hepatitis C Ab (EIA) Nonreactive Hep C Viral Load <15 DETECTED A Hep C Viral Load Log <1.18 DETECTED A HIV 1&2 Ab/P24 Ag 4thGn Nonreactive TB Test (T-Spot) Com Negative XR Ankle 12/2023 FINDINGS (Left): No fracture. Alignment is anatomic. No erosions. Joint spaces are maintained. Soft tissues are normal. FINDINGS (Right): No fracture. Alignment is anatomic. No erosions. Joint spaces are maintained. Soft tissues are normal. XR Elbows 12/2023 FINDINGS (Left): The bones and soft tissues are normal. No fracture or joint effusion. Alignment is anatomic. Joint spaces are maintained. FINDINGS (Right): Bone mineralization within normal limits. Alignment maintained. Minimal spurring along the radial head. XR Feet 12/2023 FINDINGS (Left): Bones are diffusely demineralized. Pes planus. Severe lateral subluxations at the first, second, third and fourth metatarsophalangeal joints with associated degenerative changes. Moderate degenerative changes in the midfoot. FINDINGS (Right): Bones are diffusely demineralized. Pes planus. Severe lateral subluxations at the first, second, third and fourth metatarsophalangeal joints with associated degenerative changes. Moderate degenerative changes in the midfoot. XR Hand/Wrist 12/2023 FINDINGS (Right): Severe radiocarpal joint space narrowing with subchondral sclerosis, subchondral cystic change, and marginal osteophytes. Widening of the lunotriquetral joint space which likely indicates an underlying ligament tear. Widening of the distal radioulnar joint with erosion/blunting of the distal ulna. Joint space narrowing with bony remodeling and central erosions at the triscaphe, first carpometacarpal, and first interphalangeal joints. No acute fracture or dislocation. No abnormal soft tissue calcification. FINDINGS (Left): Moderate joint space narrowing with bony remodeling at the radiocarpal and distal radioulnar joints. More mild joint space narrowing with small marginal osteophytes at the triscaphe and first carpal metacarpal joint. Joint space narrowing with erosions at the first metacarpophalangeal and interphalangeal joints. Periarticular erosions partially visualized at the remaining metacarpophalangeal joints. XR SI joint 12/2023 FINDINGS: Degenerative changes in the imaged lower lumbar spine. Visualization limited due to overlying stool-filled bowel. [id number] degenerative changes on limited views of the right hip. Severe degenerative changes on limited views of the left hip with obliteration of the joint space, subchondral sclerosis and remodeling. Dedicated views of the hips recommended for further evaluation. Probable fusion of the sacroiliac joints. Assessment & Plan Assessment & Plan (1) Ankylosing spondylitis: Comment: Diagnosed in his 20s Previously on methotrexate, Humira and Enbrel with limited efficacy Lost to follow-up and 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 Starting on infliximab and methotrexate Code(s): M45.9 - Ankylosing spondylitis of unspecified sites in spine Category: Medical Qualifiers: Ankylosing spondylitis location: lumbar region Qualified Code(s): M45.6 - Ankylosing spondylitis lumbar region Plan: #Ankylosing Spondylitis Patient with ankylosing spondylitis and all of the erosions and complications associated with this including uveitis. This is a really severe progression of his disease and we will need to restart patient on immunosuppression. Unfortunately since his last visit he has not started any of the immunosuppression neither infliximab or methotrexate. 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 Since he Plan - Infliximab infusions 5 mg/kg at 0, 2, and 6 weeks, followed by 5 mg/kg every 6 weeks thereafter - Urgent infusion center referral - Methotrexate 15mg PO every week - Folic acid 1mg daily - Check CBC, CMP, ESR, CRP, Hepatitis panel and T spot today - RTC 3 months (2) Uveitis: Code(s): H20.9 - Unspecified iridocyclitis Category: Medical Plan: #Uveitis Did not see Ophthalmology after last visit Plan - Urgent referral to Ophthalmology - Start infliximab - Patient denied going to the ED (3) Encounter for monitoring of infliximab therapy: Code(s): Z51.81 - Encounter for therapeutic drug level monitoring; 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 of immunosuppressive biologic Category: Medical Plan: #Long-term Use of TNF Inhibitors: Infliximab Discussed with the patient the benefits and risks of TNF inhibitors for the management of the rheumatic condition Benefits include reduce pain, maintenance of remission and reduction of flares as well as ?progression of the disease Risks include injection sites/infusion reactions, serious infections (such as bacterial infections, opportunistic infections), malignancy, delaminating synd romes, autoimmune phenomena, CHF exacerbations, palmar plantar psoriasis and cytopenias Recommended rotating injection sites, and holding medication during and for up to 1 week after resolution of a febrile illness or open skin wound (4) 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 Limit alcohol and avoid Bactrim ? Monitoring: ?CBC, BMP, LFTs every 3-4 months and hepatitis serologies as needed (5) Encounter for long-term (current) use of NSAIDs: Code(s): Z79.1 - [facility] (current) use of non-steroidal anti-inflammatories (NSAID) Category: Medical Plan: #Long-term Use of NSAIDs Discussed with patient the benefits and risk of NSAIDs for managing the rheumatic condition Benefits include: - Reduced the pain, improved mobility, and increased participation in activities Risks include: - GI upset, potential also worsening or formation (especially in patients > 65 years old) Recommended using proton pump inhibitors (PPIs) for the duration of NSAID use to reduce the risk of gastric ulcers Plan I spent 45 minutes reviewing the record and labs, seeing the patient, discussing the treatment plan, Co ordinating care and documenting in the medical record ? Orders: Orders Complete Blood Count Auto Diff Today H20.9 - Unspecified iridocyclitis, M45.6 - Ankylosing spondylitis lumbar region Erythrocyte Sedimentation Rate Today H20.9 - Unspecified iridocyclitis, M45.6 - Ankylosing spondylitis lumbar region T Spot TB Today H20.9 - Unspecified iridocyclitis, M45.6 - Ankylosing spondylitis lumbar region Comprehensive Met. Panel Today H20.9 - Unspecified iridocyclitis, M45.6 - Ankylosing spondylitis lumbar region C Reactive Protein Today H20.9 - Unspecified iridocyclitis, M45.6 - Ankylosing spondylitis lumbar region Hepatitis A,B,C Profile Today H20.9 - Unspecified iridocyclitis, M45.6 - Ankylosing spondylitis lumbar region Referrals [facility]Hospice Referral M45.6 - Ankylosing spondylitis lumbar region Medications: New chair, wheel (Wheel chair) As directed 1 ea 0RF M45.6 - Ankylosing spondylitis lumbar region Coding Level of Care Code Est Pt Level 5 (60079) Complex EM visit Add On G2211 Diagnoses Ankylosing spondylitis of lumbar region M45.6 Ankylosing spondylitis location: lumbar region Uveitis H20.9 Encounter for monitoring of infliximab therapy Z51.81; Z79.620 Methotrexate, intermediate, 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
[2024-05-04 09:13] VITALS: BP 120/70; PULSE 77; O2SAT 98; BMI 19.0
== END 2024-05-04 09:51 | disposition home or self-care (01) ==
PROVIDERS: PCP Internal Medicine; Visit Provider Student in an Organized Health Care Education/Training Program
DX: M45.6 Ankylosing spondylitis lumbar region (principal); H20.9 Unspecified iridocyclitis; Z51.81 Encounter for therapeutic drug level monitoring; Z79.620 Long term (current) use of immunosuppressive biologic; Z79.631 Long term (current) use of antimetabolite agent; Z79.1 Long term (current) use of non-steroidal anti-inflammatories (NSAID)
CPT/HCPCS: 99215; G2211

== ENCOUNTER → 2024-05-04 09:00 | Outpatient (BNVA) | payer OTHER, SELFPAY | PROVIDERS: PCP Internal Medicine; Visit Provider Student in an Organized Health Care Education/Training Program | DX: M45.6 Ankylosing spondylitis lumbar region (principal); H20.9 Unspecified iridocyclitis; Z51.81 Encounter for therapeutic drug level monitoring; Z79.1 Long term (current) use of non-steroidal anti-inflammatories (NSAID); Z79.620 Long term (current) use of immunosuppressive biologic; Z79.631 Long term (current) use of antimetabolite agent | CPT/HCPCS: 99212 ==

== ENCOUNTER 2024-08-16 09:59 | Outpatient (REF) | payer OTHER, SELFPAY ==
[2024-08-16 13:01] LABS: MANUAL DIFF FLAG NO
[2024-08-16 13:25] LABS: Basophils Percent Auto 0.5 % (0-2); Eosinophils Absolute Auto 0.5 X10*3/uL (0.0-0.4); Hemoglobin 12.8 g/dl (14.0-18.0); Imm Gran Abs Auto 0.02 X10*3/uL (0.00-0.03); Imm Gran Pct Auto 0.3 % (0.0-0.4); Lymphocytes Absolute Auto 1.8 X10*3/uL (1.2-4.9); Mean Corpuscular HGB Conc 32.8 g/dl (31.0-36.0); Mean Corpuscular Hemoglobin 28.8 pg (27.0-33.0); Mean Corpuscular Volume 87.6 fL (80.0-98.0); Monocytes Absolute Auto 0.6 X10*3/uL (0.1-1.2); Monocytes Percent Auto 9.5 % (2-11); Neutrophils Absolute Auto 3.6 x10*3/uL (2.0-8.3); Neutrophils Percent Auto 54.7 % (45-73); Platelet Count 397 X10*3/uL (160-400); Red Blood Count 4.45 X10*6/uL (4.60-5.80); Red Cell Distribution Width 22.7 % (11.0-16.0); White Blood Count 6.5 X10*3/uL (4.8-10.8)
[2024-08-16 13:30] LABS: Alanine Aminotransferase 17 U/L (0-40); Albumin Level 4.3 g/dL (3.5-5.0); Alkaline Phosphatase 107 U/L (39-117); Anion Gap 12 (12-20); Aspartate Amino Transferase 30 U/L (5-37); Bilirubin Total 0.3 mg/dL (0.0-1.0); Blood Urea Nitrogen 34 mg/dL (9-16); C Reactive Protein 2.86 mg/dL (< or = 0.50); Calcium 9.8 mg/dL (8.4-10.2); Carbon Dioxide 25 mmol/L (22-29); Chloride 102 mmol/L (96-108); Estimated Glomerular Filt Rate > 60; Glucose Random 88 mg/dL (60-115); Potassium 4.4 mmol/L (3.3-5.1); Sodium 135 mmol/L (135-145); Total Protein 9.1 g/dL (6.5-8.0)
[2024-08-16 14:01] LABS: Erythrocyte Sedimentation Rate 77 MM/HR (0-15)
[2024-08-16 14:08] LABS: HBS Num1 2.66 mIU/mL (0-7.99); HBc Num1 0.24 S/CO (0.00-0.79); HBsAGNum1 0.47 S/CO (0.00-0.99); Hepatitis A Antibody IgM 0.54 Index (0-0.79); Hepatitis B Core Antibody Nonreactive (Nonreactive); Hepatitis B Surface Antigen Negative (Negative); ~HepC Num1 0.17 S/CO (0.00-0.79); ~Hepatitis A Antibody IgM Nonreactive (Nonreactive); ~Hepatitis B Surface Antibody NONREACTIVE (Nonreactive); ~Hepatitis C Antibody Nonreactive (Nonreactive)
[2024-08-18 23:33] LABS: TS Negative Control Passed; TS Panel A 0; TS Panel B 0; TS Positive Control Passed; TSpotTB Negative (Negative)
== END 2024-08-16 10:00 | disposition home or self-care (01) ==
LOC: HO.HMGCLDS 09:59
PROVIDERS: PCP Internal Medicine; Visit Provider Student in an Organized Health Care Education/Training Program
DX: M45.6 Ankylosing spondylitis lumbar region (principal); H20.9 Unspecified iridocyclitis
CPT/HCPCS: 36415; 80053; 85025; 85652; 86140; 86481; 86704; 86706; 86709; 86803; 87340

== ENCOUNTER 2024-08-20 14:49 | Outpatient (AMB) | payer OTHER, SELFPAY ==
--- NOTE | 2024-08-20 14:53 | MHC.OFFVIS ---
Vital Signs 08/20/24 15:01 Height 5 ft 4 in Weight 112 lb 6.972 oz BMI 19.3 BP 98/62 Blood Pressure Location Rt brachial Position Standing Pulse 91 Pulse Source Pulse Oximeter Pulse Oximetry (%) 98 Oxygen Delivery Method Room Air Intake Visit Reasons: follow up Intake Note: Patient presents for follow up. 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 At that time he was following up for his end-stage ankylosing spondylitis complicated by uveitis with fusion of SI joints and several joint deformities. He unfortunately did not start his infliximab infusions or methotrexate and was complaining of worsening vision. He was urgently sent to the infusion center. Today, Patient followed up with ophthalmology and has been getting prednisolone eye drops and eye injections with improvement in his sight Also feels better overall now that he is on the infusion Rheumatologic History: Patient states that when he was in his mid 20s (around ) he started to have lower back pain which she initially attributed to his work but this pain progressed and he sought medical attention. He was ultimately diagnosed with ankylosing spondylitis and started on methotrexate, Humira (with minimal effect) and subsequently Enbrel. He was noncompliant with his medications and ultimately self discontinued his medications and sought to medicate himself with fentanyl on the street. And he has been doing this for several years. Within the past year he has gotten clean is currently in a methadone program and he is looking to establish care for his ankylosing spondylitis. His ank spond has been complicated by recurrent uveitis. Over the years he has had several deformities that have progressed and now he has to walk with 2 canes. 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 Social History Housing: House Alcohol intake: current Alcohol intake frequency: holidays/special occasions only Patient Tobacco Use Status: Current everyday Tobacco user Cigarette Packs Per Day: 0.5 e-Cigarette/Vaping Use: Never Used service: No Current occupational status: disabled Cognitive needs: No Hearing needs: No Vision needs: No Review of Systems Const Details: Review of Systems Constitutional: Denies fever, chills, weight loss ENT: Denies vision changes, eye pain or eye redness, dental caries, dry mouth GI: Denies nausea, vomiting, diarrhea, abdominal pain, change in BM Pulm: Denies SOB, COX, hemoptysis, wheezing Cards: Denies chest pain, palpitations Skin: Denies Raynaud's, rash, nail changes, photosensitivity, DIST[employer]ED [employer]JECT MANAGER: Denies headaches, weakness, paresthesias, recurrent falls MSK: as per HPI All other systems reviewed and are unremarkable except noted above Physical Exam Vital Signs: Last Vital Signs Pulse 91 08/20/24 15:01 BP 98/62 08/20/24 15:01 Pulse Ox 98 08/20/24 15:01 Oxygen Delivery Method Room Air 08/20/24 15:01 BMI result Body Mass Index 19.3 Physical Examination Patient well appearing and in no apparent painful distress. Patient examined while standing holding on to 2 canes Constitutional Mucous membranes pink and moist patient alert and cooperative HEENT Conjunctiva and sclera clear. ?Pupils equal round and reactive to light. ?No lymphadenopathy. ?Dental caries Respiratory System Normal respiratory effort and able to speak in complete sentences. ?Clear to auscultation bilaterally. ?No crackles, rales, rhonchi, wheezes heard. Cardiac System Regular rate and rhythm. ?S1 and S2 heard no murmurs. ?Radial pulses intact bilaterally MSK Hands:.??Flexion contractures at the PIPs DIPs involving the right and left 2nd-5th PIPs. Ulnar deviation at the level of the MCPs bilaterally. Squaring of the 1st CMC. Unable to make a fist. No obvious synovitis Wrists: Tenderness to palpation of the right wrist with synovial hypertrophy noted. Range of motion about 15 degrees. Left wrist with no swelling or tenderness to palpation but also with limited range of motion to about 15-30 degrees. Elbows: No swelling or tenderness to palpation. Held in 45-50 degree flexion bilaterally unable to extend past this Shoulders: Decreased range of motion to active movement. Range of motion is a little bit better with passive movement but still decreased. Knees:.??Patient examined standing up. No tenderness to palpation Ankles:.??Patient examined standing up. No tenderness to palpation Feet:.? Hallux deformities noted to the feet with deviation at the level of the MTPs. Results Reviewed Results Reviewed: Laboratory Tests 01/23/24 08/16/24 11:31 10:03 WBC 7.2 6.5 RBC 4.45 L Hgb 12.8 L D Hct 39.0 L D Plt Count 397 ESR 101 H 77 H Sodium 135 Potassium 4.4 Chloride 102 Carbon Dioxide 25 BUN 34 H Creatinine 1.10 Calcium 9.8 AST 30 ALT 17 Alkaline Phosphatase 107 C-Reactive Protein 14.55 H 2.86 H Infectious serologies 08/16/24 10:03 Hepatitis A IgM Ab Nonreactive Hep Bs Antigen Negative Hep Bs Antibody NONREACTIVE Hep B Core Total Ab Nonreactive Hepatitis C Ab (EIA) Nonreactive TB Test (T-Spot) Com Negative Assessment & Plan Assessment & Plan (1) Ankylosing spondylitis: Comment: Diagnosed in his 20s Previously on methotrexate, Humira and Enbrel with limited efficacy Lost to follow-up and 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 Starting on infliximab and methotrexate Code(s): M45.9 - Ankylosing spondylitis of unspecified sites in spine Category: Medical Qualifiers: Ankylosing spondylitis location: lumbar region Qualified Code(s): M45.6 - Ankylosing spondylitis lumbar region Plan: #Ankylosing Spondylitis Patient is a 44-year-old male with ankylosing spondylitis and all of the erosions and complications associated with this including uveitis. This is a really severe progression of his disease. Significant improvement in his inflammatory markers and his overall feeling. Unfortunately because of his end-stage disease he has a lot of contractures but there is no evidence of any active synovitis at this time. Plan - Infliximab infusions 5 mg/kg every 6 weeks thereafter - Methotrexate 15mg PO every week - Folic acid 1mg daily - RTC 4 months - Labs before visit: CBC, CMP, ESR, CRP (2) Uveitis: Code(s): H20.9 - Unspecified iridocyclitis Category: Medical Plan: #Uveitis Continue follow up with ophthalmology Requested notes Plan - Continue opthal (3) Encounter for monitoring of infliximab therapy: Code(s): Z51.81 - Encounter for therapeutic drug level monitoring; Z79.620 - terminal computer operator (current) use of immunosuppressive biologic Category: Medical Plan: #Long-term Use of TNF Inhibitors: Infliximab Discussed with the patient the benefits and risks of TNF inhibitors for the management of the rheumatic condition Benefits include reduce pain, maintenance of remission and reduction of flares as well as ?progression of the disease Risks include injection sites/infusion reactions, serious infections (such as bacterial infections, opportunistic infections), malignancy, delaminating syndromes, autoimmune phenomena, CHF exacerbations, palmar plantar psoriasis and cytopenias Recommended rotating injection sites, and holding medication during and for up to 1 week after resolution of a febrile illness or open skin wound (4) 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 Limit alcohol and avoid Bactrim ? Monitoring: ?CBC, BMP, LFTs every 3-4 months and hepatitis serologies as needed (5) Encounter for long-term (current) use of NSAIDs: Code(s): Z79.1 - terminal computer operator (current) use of non-steroidal anti-inflammatories (NSAID) Category: Medical Plan: #Long-term Use of NSAIDs Discussed with patient the benefits and risk of NSAIDs for managing the rheumatic condition Benefits include: - Reduced the pain, improved mobility, and increased participation in activities Risks include: - GI upset, potential also worsening or formation (especially in patients > 65 years old) Recommended using proton pump inhibitors (PPIs) for the duration of NSAID use to reduce the risk of gastric ulcers Plan I spent 30 minutes reviewing the record and labs, seeing the patient, discussing the treatment plan and documenting in the medical record ? Orders: Orders Complete Blood Count Auto Diff 4 Months M45.6 - Ankylosing spondylitis lumbar region Comprehensive Met. Panel 4 Months M45.6 - Ankylosing spondylitis lumbar region C Reactive Protein 4 Months M45.6 - Ankylosing spondylitis lumbar region Erythrocyte Sedimentation Rate 4 Months M45.6 - Ankylosing spondylitis lumbar region Medications: New docusate sodium 100 mg PO BID 90 days 180 caps 1RF K59.00 - Constipation, unspecified Refilled folic acid 1 mg PO DAILY 90 tabs 1RF M45.6 - Ankylosing spondylitis lumbar region methotrexate sodium 15 mg (6 x 2.5 mg) PO QWEEK 90 days 78 tabs 1RF M45.6 - Ankylosing spondylitis lumbar region Coding Level of Care Code Est Pt Level 4 (95967) Complex EM visit Add On G2211 Diagnoses Ankylosing spondylitis of lumbar region M45.6 Ankylosing spondylitis location: lumbar region Uveitis H20.9 Encounter for monitoring of infliximab therapy Z51.81; Z79.620 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
[2024-08-20 15:01] VITALS: BP 98/62; PULSE 91; O2SAT 98; BMI 19.3
== END 2024-08-20 15:20 | disposition home or self-care (01) ==
LOC: HO.RHE 14:50
PROVIDERS: PCP Internal Medicine; Visit Provider Student in an Organized Health Care Education/Training Program
DX: M45.6 Ankylosing spondylitis lumbar region (principal); H20.9 Unspecified iridocyclitis; Z51.81 Encounter for therapeutic drug level monitoring; Z79.620 Long term (current) use of immunosuppressive biologic; Z79.631 Long term (current) use of antimetabolite agent; Z79.1 Long term (current) use of non-steroidal anti-inflammatories (NSAID)
CPT/HCPCS: 99214; G2211

== ENCOUNTER → 2024-08-20 14:49 | Outpatient (BNVA) | payer OTHER, SELFPAY | PROVIDERS: PCP Internal Medicine; Visit Provider Student in an Organized Health Care Education/Training Program | DX: M45.6 Ankylosing spondylitis lumbar region (principal); K59.00 Constipation, unspecified; H20.9 Unspecified iridocyclitis; Z51.81 Encounter for therapeutic drug level monitoring; Z79.620 Long term (current) use of immunosuppressive biologic; Z79.631 Long term (current) use of antimetabolite agent; Z79.1 Long term (current) use of non-steroidal anti-inflammatories (NSAID) | CPT/HCPCS: 99212 ==

== ENCOUNTER 2024-11-23 12:10 | Emergency (ER) | payer OTHER, SELFPAY ==
[2024-11-23 13:06] VITALS: BP 134/65; PULSE 74; RESP 16; O2SAT 99; BMI 18.3
--- NOTE | 2024-11-23 13:19 | ED_ITS ---
HPI - General Adult General Chief complaint: Dental/Oral Stated complaint: Teeth pulled recently, still bleeding Time Seen by Provider: 11/23/24 16:34 Source: patient Mode of arrival: ambulatory Limitations: no limitations History of Present Illness ED Provider: Scout Tavares HPI narrative: 44 yold male with pmh of ALS presents to the ED for bleeding after tooth extraction. Patient was sent from dental office for bleeding. patient had 5 right lower molar tooth extractions Related Data Home Medications ?Medication ?Instructions ?Recorded ?Confirmed methadone 10 mg/5 mL oral solution 30 mg PO BID 08/20/24 Previous Rx's ?Medication ?Instructions ?Recorded ferrous sulfate 325 mg (65 mg 325 mg PO TID 90 days #2 70 tabs 12/05/23 iron) tablet chair, wheel (Wheel chair) #1 ea 05/04/24 ferrous sulfate 325 mg (65 mg 325 mg PO BID #180 tabs 05/05/24 iron) tablet docusate sodium 100 mg capsule 100 mg PO BID 90 days # 180 caps 08/20/24 folic acid 1 mg tablet 1 mg PO DAILY #90 tabs 08/20 methotrexate sodium 2.5 mg tablet 15 mg (6 x 2.5 mg) P O QWEEK 90 08/20/24 days #78 tabs Ultra-Lightweight Wheel Chair #1 ea 09/21/24 (K0005) celecoxib 200 mg capsule 200 mg PO BID #180 caps 10/29 07/23 omeprazole 40 mg capsule,delayed 40 mg PO DAILY #90 ca ps 11/12/24 release Allergies Allergy/AdvReac Type Severity Reaction Status Date / Time hayfever Allergy Mild sneezing, Uncoded 11/23/24 13:09 watery Review of Systems 2 Review of Systems: bleeding after tooth extaction Yes all other systems are reviewed and are negative PMF Past Medical History Medical History (Updated 11/24/24 @ 00:00 by Andreea Collins) Encounter for long-term (current) use of NSAIDs Methotrexate, retirement, current use Encounter for monitoring of infliximab therapy Xerosis of skin Seborrheic dermatitis of scalp Chronic GERD Uveitis Asthma, moderate Tobacco abuse Ankylosing spondylitis Surgical History No pertinent past surgical history Family History Family History Father Lymphoma Mother HTN (hypertension) Sister No problems noted. Social History Social History Housing: House Alcohol intake: current Alcohol intake frequency: holidays/special occasions only Patient Tobacco Use Status: Current everyday Tobacco user Cigarette Packs Per Day: 0.5 e-Cigarette/Vaping Use: Never Used Advance Directives: Yes Advance Directives Information Provided: Yes Advance Directives on File: No service: No Current occupational status: disabled Cognitive needs: No Hearing needs: No Vision needs: No Physical Exam ED Vital Signs: Vital Signs - 24 hr 11/23/24 16:41 11/23/24 16:49 Temperature 98.1 F 98.1 F Pulse Rate 64 64 Respiratory Rate 18 18 Blood Pressure 135/78 135/78 Pulse Oximetry 99 99 Oxygen Delivery Method Room Air Room Air BMI result Body Mass Index 18.3 Const General: cooperative, healthy appearing, comfortable, no acute distress, well developed, alert, awake and Physically active Orientation/consciousness: patient oriented x3 HENMT Head: Yes normal to inspection, Yes No palpable skull fracture present, Yes normocephalic, Yes atraumatic and No abrasion Teeth image: 2 1. tooth removed. present are sutures with some bleeding. Eyes General: appearance normal, both eyes and all related structures Visual Ferguson: normal visual ferguson by confrontation Alignment and Position: alignment normal Periorbital: periorbital findings normal Eyelids: Yes eyelids normal Conjunctivae: conjunctivae normal Sclerae: sclerae normal Corneas: corneas normal Pupils: Equal, round and reactive pupils present Neck Neck: Yes normal visual inspection, Yes full ROM, Yes no lymphadenopathy, Yes no meningeal signs, Yes trachea midline, Yes supple, No anterior neck swelling and No lymphadenopathy Chest Chest palpation & inspection: normal inspection of the chest and normal palpation of entire chest wall Resp Effort & Inspection: normal respiratory effort and able to speak in complete sentences Auscultation: clear to auscultation bilaterally Cardio Jugular venous distension: no JVD Heart sounds: S1 normal heart sound present and S2 normal heart sound present GI Inspection: Yes normal to inspection Palpation (GI): Soft to palpation, not firm, nontender, no guarding and not rigid General: Yes no CVA tenderness Back/Spine/Pelvis Back: no CVA tenderness and No back tenderness Skin General skin exam: no rashes or lesions noted, elasticity normal and turgor normal Neuro Other: wheel chair bound, ALS General: patient oriented x3, tone normal, moves all extremities, Normal light touch and pain sensation, no meningeal signs and no focal motor deficits Cranial nerves: Yes Equal, round and reactive pupils present Extrem General: Yes normal to inspection, Yes full ROM and Yes capillary refill normal Psych Appearance: grossly normal, well kempt and not disheveled Course Course Course Narrative: RME: 44 yold male male with ALS presents to the ED bleeding after tooth extraction. Patient has had 5 right lower tooth extracted and sutures in place sent from dental clinic for continuous bleeding. Positive for bleeding from area of teeth extraction but not hemorrhaging. TMXA Medications Administered Discontinued Medications Generic Name Dose Route Start Last Admin Trade Name Freq PRN Reason Stop Dose Admin Tranexamic Acid 1,000 mg/ 260 mls @ 32.5 mls/hr 11/23/24 13:13 11/23/24 13:13 Sodium Chloride IV Not Given .Q8H JEZ Tranexamic Acid 500 mg 11/23/24 14:01 11/23/24 14:22 Tranexamic Acid 1,000 Mg/10 Ml Vial IRRIGATION 11/23/24 14:02 500 mg ONCE ONE Administration Medical Decision Making Medical Decision Making [facility] Narrative: 44 yold male presents to the ED for dental bleeding after tooth extraction. Occurred at the dental clinic this morning. Tranemic acid liquid was sprayed on right lower molar area of tooth extractions. Than gauzed with tranemic acid was placed on area of tooth extractions and kept there for one hour after removal. One hour later gauze was removed and bleeding improved significantly. Only oozing. Patient and mother explained worrisome signs and informed to return to the ED immeidatley. NOt suspecting respiratlry distress, vascular oral/neck hemmoharging, arash angina, or any other life threatening eitology Differential Diagnosis Differential Diagnoses: The differential diagnosis associated with the presentation includes (dry socket, bleeding) Admission/Observation Consideration of admission/observation: Escalation of care including admission/observation considered Independent Historian Clinical information obtained from an independent historian. History obtained from or confirmed by: Parent (mother) and Other (patient) Prescription Management I considered prescription management with: Pain Medication Discharge Plan Discharge Clinical Impression: Bleeding post tooth extraction Patient Disposition: Home, Self-Care Instructions: Tooth Extraction (DC) Additional Instructions: Recommend follow-up with primary care and dental provider. You can continue to use gauze on oozing. Return to the ED for profuse bleeding, weakness, dizziness, drooling, change voice, chest pain, shortness of breath, or any other concerning symptoms. Prescriptions: No Action ferrous sulfate 325 mg (65 mg iron) Tablet 325 mg PO BID Qty: 180 4RF (DME) Ultra-Lightweight Wheel Chair (K0005) See Rx Instructions .Route .MEDSUPPLY Qty: 1 0RF Rx Instructions: As directed celecoxib 200 mg capsule 200 mg PO BID Qty: 180 0RF omeprazole 40 mg capsule,delayed release(DR/EC) 40 mg PO DAILY Qty: 90 0RF ferrous sulfate 325 mg (65 mg iron) tablet 325 mg PO TID 90 Days Qty: 270 0RF methadone 10 mg/5 mL solution 30 mg PO BID (DME) Wheel chair Kit See Rx Instructions .Route Qty: 1 0RF Rx Instructions: As directed docusate sodium 100 mg capsule 100 mg PO BID 90 Days Qty: 180 1RF folic acid 1 mg tablet 1 mg PO DAILY Qty: 90 1RF methotrexate sodium 2.5 mg tablet 15 mg PO QWEEK 90 Days Qty: 78 1RF Interventions: ED Discharge Assessment Last Done: 11/23/24 16:49 Discharge Date/Time: 11/23/24 16:49 Print Language: Scottish
--- NOTE | 2024-11-23 13:21 | PC.NURSE ---
Requested TXA from Pharmacy. To be administered/applied by CLARA Tavares in triage. Slow bleeding, stable at this time.
[2024-11-23] MEDS: Tranexamic Acid 1,000 MG/10 ML VIAL 500 MG IRRIGATION (14:22)
[2024-11-23 16:41] VITALS: BP 135/78; PULSE 64; RESP 18; TEMP 36.7; O2SAT 99
[2024-11-23 16:49] VITALS: BP 135/78; PULSE 64; RESP 18; TEMP 36.7; O2SAT 99
== END 2024-11-23 16:49 | disposition home or self-care (01) ==
PROVIDERS: Emergency Provider Emergency Medicine; PCP Internal Medicine
DX: K91.840 Postprocedural hemorrhage of a digestive system organ or structure following a digestive system procedure (principal); Z79.899 Other long term (current) drug therapy; F17.210 Nicotine dependence, cigarettes, uncomplicated
CPT/HCPCS: 99282; 99283

== ENCOUNTER 2024-12-07 09:33 | Outpatient (REF) | payer OTHER, SELFPAY ==
[2024-12-07 13:05] LABS: MANUAL DIFF FLAG NO
[2024-12-07 13:18] LABS: Hematocrit 41.0 % (42.0-52.0); Hemoglobin 13.7 g/dl (14.0-18.0); Imm Gran Abs Auto 0.01 X10*3/uL (0.00-0.03); Imm Gran Pct Auto 0.2 % (0.0-0.4); Lymphocytes Absolute Auto 1.9 X10*3/uL (1.2-4.9); Mean Corpuscular HGB Conc 33.4 g/dl (31.0-36.0); Mean Corpuscular Hemoglobin 29.8 pg (27.0-33.0); Mean Corpuscular Volume 89.1 fL (80.0-98.0); NRBC Abs Auto 0.000 X10*3/uL (0.0-0.012); NRBC Pct Auto 0.0 /100WBC (0.0-0.2); Platelet Count 290 X10*3/uL (160-400); Red Blood Count 4.60 X10*6/uL (4.60-5.80); White Blood Count 5.5 X10*3/uL (4.8-10.8)
[2024-12-07 13:51] LABS: Alanine Aminotransferase 19 U/L (0-40); Albumin Level 4.7 g/dL (3.5-5.0); Alkaline Phosphatase 110 U/L (39-117); Anion Gap 13 (12-20); Aspartate Amino Transferase 34 U/L (5-37); Blood Urea Nitrogen 24 mg/dL (9-16); Calcium 9.9 mg/dL (8.4-10.2); Carbon Dioxide 30 mmol/L (22-29); Chloride 100 mmol/L (96-108); Cholesterol 158 mg/dL (<200); Estimated Glomerular Filt Rate > 60; HDL Cholesterol 37 mg/dL (>40); Potassium 4.6 mmol/L (3.3-5.1); Sodium 138 mmol/L (135-145); Total Protein 8.8 g/dL (6.5-8.0); Triglycerides 73 mg/dL (<150)
[2024-12-07 14:02] LABS: Erythrocyte Sedimentation Rate 55 MM/HR (0-15); Ferritin 72 ng/mL (20-250)
[2024-12-07 14:05] LABS: Folate 12.4 ng/mL (> or = 4.0); Vitamin B12 515 pg/mL (200-900)
[2024-12-11 14:13] LABS: Vitamin D 25-OH, D2 <4 ng/mL; Vitamin D 25-OH, D3 47 ng/mL; Vitamin D 25-OH, Total 47 ng/mL (30-100)
== END 2024-12-07 09:34 | disposition home or self-care (01) ==
LOC: HO.HMGCLDS 09:33
PROVIDERS: PCP Internal Medicine; Referring Provider Student in an Organized Health Care Education/Training Program; Visit Provider Internal Medicine
DX: Z00.01 Encounter for general adult medical examination with abnormal findings (principal); M45.6 Ankylosing spondylitis lumbar region; R60.0 Localized edema; J45.40 Moderate persistent asthma, uncomplicated; K21.9 Gastro-esophageal reflux disease without esophagitis; F11.20 Opioid dependence, uncomplicated; F17.210 Nicotine dependence, cigarettes, uncomplicated; Z79.631 Long term (current) use of antimetabolite agent; Z79.899 Other long term (current) drug therapy
CPT/HCPCS: 36415; 80053; 80061; 82306; 82607; 82728; 82746; 84443; 85025; 85652; 86140; 96127; 99396

== ENCOUNTER 2024-12-07 09:33 | Outpatient (AMB) | payer OTHER, SELFPAY ==
[2024-12-07 09:37] VITALS: BP 100/60; PULSE 70; O2SAT 98; BMI 18.6
--- NOTE | 2024-12-07 09:37 | MHC.PC.OV ---
Vital Signs 12/07/24 09:37 Height 5 ft 5 in Weight 112 lb BMI 18.6 BP 100/60 Blood Pressure Location Lt brachial Position Sitting Pulse 70 Pulse Source Pulse Oximeter Pulse Oximetry (%) 98 Oxygen Delivery Method Room Air Intake Visit Reasons: PE Allergies hayfever Allergy (Mild, Uncoded 12/07/24 09:37) sneezing, watery Medication List - Last Reconciled 12/07/24 by Gloria Kirkpatrick MD celecoxib 200 mg PO BID chair, wheel (Wheel chair) As directed docusate sodium 100 mg PO BID 90 days ferrous sulfate 325 mg PO BID folic acid 1 mg PO DAILY methadone 30 mg PO BID methotrexate sodium 15 mg (6 x 2.5 mg) PO QWEEK 90 days omeprazole 40 mg PO DAILY [Ultra-Lightweight Wheel Chair (K0005) As directed] Tobacco use date assessed: 12/07/24 Dental Screening Dental Screen Date: 12/07/24 Did you have a dental visit in the last 12 months?: Yes Did you have a dental problem in the last 6 months where you did not have access to dental care?: No Was dental information given to patient?: Patient has dentist HPI PE HPI Details History of Present Illness The patient is a 44 year old male presenting for a wellness visit and physical examination. Ankylosing Spondylitis: - Describes leg weakness and stiffness more pronounced in the sacroiliac region. - Currently follows up with a outside property agent for management. - History of methotrexate usage. - Observes the use of a walker at home for mobility assistance. Uveitis, history of chronic: - Eye pain managed with prednisolone drops and improvement noted. - Previously underwent laser surgery for film on lens; has experienced significant improvement. - Eye doctor visits occur monthly for ongoing care, with Remicade infusions contributing to symptom control. Asthma, moderate: - Reports stabilization of symptoms; no exacerbations mentioned. - no inhalers at this time. Seborrheic Dermatitis: xerosis - Skin condition includes dryness, uses moisturizing lotions such as Jergens with almond oil. - Symptoms primarily involve dry skin. Opioid Dependence, history of: - On methadone maintenance therapy. - Smoked cigarettes since age 20, currently smokes less than a pack every three days; intends to quit. Medical History: - Ankylosing Spondylitis - History of chronic uveitis stable at this time - Moderate asthma stable of inhalers - Seborrheic Dermatitis - Opioid dependence, currently on methadone maintenance Surgical History: - Laser surgery for film on the eye lens Social History: - Active cigarette smoker since age 20, currently reduces to a pack every three days; intent on quitting. - Lives independently, limited social interactions. - Attempts to manage calories and reduce sugar intake. - Currently managing skin condition actively. - No alcohol consumption; avoids high-sugar beverages. - Employs no extra assistance with mobility but considers using a walker when necessary. Health Maintenance - Monthly ophthalmology consultations; last visit involved laser surgery. - Due for tetanus, flu, and COVID vaccines. - Attempts to seal moisture in skin with post-shower routines and nightly application of moisturizers with olive oil. - Practice refined by avoiding excessively high water temperatures. [place] [facility] - Follows care with outside property agent and garden tractor mechanic. - Reports regular care and consultation by Dr. Ortiz for gastroenterology. Medications - Celecoxib (Celebrex) as needed, prescribed by Dr. Ortiz (dose unspecified) - Methotrexate for ankylosing spondylitis - Omeprazole (dose unspecified) - Methadone for opioid dependence Diagnostic results - Labs: - Hemoglobin 12.8; improved from last year. - Kidney function tests within normal limits. - Electrolytes within normal limits. - Tests and diagnostics: - Liver enzymes reported normal. - Ophthalmology assessment post-laser surgery was satisfactory. Patient Instructions - Avoid excessively hot showers to maintain skin moisture. - Apply post-shower moisturizer and night-time olive oil to skin to improve hydration. - Continue decreasing cigarette smoking and consider support if needed. - Ensure vaccination at the local pharmacy, including tetanus, COVID, and flu shots. Return next year for physical exam Review of Systems - General: No fever no chills - Neurological: No headaches no dizziness - Ear nose throat: No sore throat no hearing difficulty no ear pain - Cardiovascular: No syncope, no chest pain, no palpitations - Gastrointestinal: No nausea vomiting or diarrhea - Endocrine: No polyuria polydipsia no heat intolerance - Genitourinary: No dysuria Physical Exam General: Cooperative, comfortable, no acute distress Orientation: Patient oriented x3 Limitations: Uses cane both hands Head: Normal to inspection Ears: Within normal limit visually Nose: Normal external nose present Face and sinus: Normal facial exam Eyes: Appearance normal, extraocular movement intact pupils reactive Neck: Normal visual inspection and supple Respiratory: Normal respiratory effort and able to speak in complete sentences. Clear to auscultation, no stridor Cardiovascular: S1 and S2 RRR GI: Normal to inspection. 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 Social History Housing: House Alcohol intake: current Alcohol intake frequency: holidays/special occasions only Patient Tobacco Use Status: Current everyday Tobacco user Cigarette Packs Per Day: 0.5 e-Cigarette/Vaping Use: Never Used service: No Current occupational status: disabled Cognitive needs: No Hearing needs: No Vision needs: No Questionnaire PHQ-9 Over the last 2 weeks, how often have you been bothered by any of the following problems? 1. Little interest or pleasure in doing things: not at all 2. Feeling down, depressed, or hopeless: not at all 3. Trouble falling or staying asleep, or sleeping too much: not at all 4. Feeling tired or having little energy: not at all 5. Poor appetite or overeating: not at all 6. Feeling bad about yourself - or that you are a failure or have let yourself or your family down: not at all 7. Trouble concentrating on things, such as reading the newspaper or watching television: not at all 8. Moving or speaking so slowly that other people could have noticed. Or the opposite - being so fidgety or restless that you have been moving around a lot more than usual: not at all 9. Thoughts that you would be better off or of hurting yourself in some way: not at all Total score: 0 Depression Screening Interpretation: Negative Depression Screening Done: Yes 24653 - PHQ-9 Billing: Yes Source: Developed by Drs. Terrance Colbert, Jeanette Horton, Mark Bryson and colleagues, with an educational titi from [employer]. Thrive Questionnaire Date Thrive assessed: 12/07/24 I am a: Patient What is your living situation today?: I have a steady place to live Within the past 12 months, did the food you bought not last and you didn't have the money to get more?: Never true Within the past 12 months, did you worry whether your food would run out before you got money to buy more?: Never true Do you have trouble paying for medicines?: No Do you have trouble getting transportation to medical appointments?: No Do you have trouble paying your heating and electricity bill?: No Do you have trouble taking care of your child, family member or friend?: I choose not to answer this question Do you have trouble with day-to-day activities such as bathing, preparing meals, shopping, managing finances, etc.?: Yes Are you currently unemployed and looking for a job?: No Are you interested in more education?: No Please select the resources that you would like help with: Transportation and Care for elder or disabled Currently or been in a relationship where the following occur: No concerns reported THRIVE Score: 0 AUDIT C Alcohol Use Questionnaire (AUDIT-C) 1. How often do you have a drink containing alcohol?: Never 3. How often do you have six or more drinks on one occasion?: Never Total Score: 0 Score Reviewed/Action Taken: Yes YEIMI-7 AMB Questionnaire YEIMI-7 Date YEIMI - 7 assessed: 12/07/24 Feeling nervous, anxious, or on edge: 0 = Not at all Not being able to stop or control worryin = Not at all Worrying too much about different things: 0 = Not at all Trouble relaxin = Not at all Being so restless that it is hard to sit still: 0 = Not at all Becoming easily annoyed or irritable: 0 = Not at all Feeling afraid as if something awful might happen: 0 = Not at all Total YEIMI-7 score (0-4 normal; 5-9 mild; 10-14 moderate; 15-21 severe): 0 Source: Developed by Drs. Terrance Colbert, Jeaentte Horton, Mark Bryson and colleagues, with an educational titi from [employer]. YEIMI-7 Assessment Billing YEIMI-7 Assessment Tool: YEIMI-7 Assessment 24600 Physical exam (Primary Care) Vital Signs: Last Vital Signs Pulse 70 12/07/24 09:37 BP 100/60 12/07/24 09:37 Pulse Ox 98 12/07/24 09:37 Oxygen Delivery Method Room Air 12/07/24 09:37 BMI result Body Mass Index 18.6 Tobacco/Smoking Status: Tobacco use Status Tobacco use date assessed 12/07/24 12/07/24 09:40 Patient Tobacco Use Status Current everyday Tobacco 12/07/24 09:40 e-Cigarette/Vaping Use Never Used 12/07/24 09:40 Are you ready to quit: Yes Tobacco cessation counseling provided: Yes Relapse Prevention: discussed the importance of a supportive environment CPT code: 38894 - 4-10 Minutes PHQ-9: PHQ-9 Score PHQ-9: Total score 0 12/07/24 09:56 Depression Screening Interpretation: Negative Thrive Assessment: Date of Thrive Assessment Date Thrive assessed 12/07/24 12/07/24 09:40 Currently or been in a relationship where the following occur: No concerns reported Coding Level of Care Code Est Pt Level 3 (69937) Est Pt Prev Care 40-64y(07863) Diagnoses Encounter for general adult medical examination with abnormal findings Z00.01 Tobacco abuse Z72.0 Ankylosing spondylitis of lumbar region M45.6 Ankylosing spondylitis location: lumbar region Methotrexate, alf, current use Z79.631 Chronic GERD K21.9 Methadone dependence F11.20 Additional Codes YEIMI-7 Assessment Billing - YEIMI-7 Assessment Tool: YEIMI-7 Assessment 66268 ([id number]) PHQ-9 - 05468 - PHQ-9 Billing: Yes ([id number]) Vital Signs *Quality* - CPT code: 22767 - 4-10 Minutes ([id number]) Assessment & Plan Assessment & Plan (1) Encounter for general adult medical examination with abnormal findings: Code(s): Z00.01 - Encounter for general adult medical examination with abnormal findings Category: Medical (2) Tobacco abuse: Code(s): Z72.0 - Tobacco use Category: Medical (3) Ankylosing spondylitis: Comment: Diagnosed in his 20s Previously on methotrexate, Humira and Enbrel with limited efficacy Lost to follow-up and 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 Starting on infliximab and methotrexate Code(s): M45.9 - Ankylosing spondylitis of unspecified sites in spine Category: Medical Qualifiers: Ankylosing spondylitis location: lumbar region Qualified Code(s): M45.6 - Ankylosing spondylitis lumbar region (4) Methotrexate, alf, current use: Code(s): Z79.631 - [facility] (current) use of antimetabolite agent Category: Medical (5) Chronic GERD: Code(s): K21.9 - Gastro-esophageal reflux disease without esophagitis Category: Medical (6) Methadone dependence: Code(s): F11.20 - Opioid dependence, uncomplicated Category: Medical Plan History of Present Illness The patient is a 44 year old male presenting for a wellness visit and physical examination. Ankylosing Spondylitis: - Describes leg weakness and stiffness more pronounced in the sacroiliac region. - Currently follows up with a outside property agent for management. - History of methotrexate usage. - Observes the use of a walker at home for mobility assistance. Uveitis, history of chronic: - Eye pain managed with prednisolone drops and improvement noted. - Previously underwent laser surgery for film on lens; has experienced significant improvement. - Eye doctor visits occur monthly for ongoing care, with Remicade infusions contributing to symptom control. Asthma, moderate: - Reports stabilization of symptoms; no exacerbations mentioned. - no inhalers at this time. Seborrheic Dermatitis: xerosis - Skin condition includes dryness, uses moisturizing lotions such as Jergens with almond oil. - Symptoms primarily involve dry skin. Opioid Dependence, history of: - On methadone maintenance therapy. - Smoked cigarettes since age 20, currently smokes less than a pack every three days; intends to quit. Medical History: - Ankylosing Spondylitis - History of chronic uveitis stable at this time - Moderate asthma stable of inhalers - Seborrheic Dermatitis - Opioid dependence, currently on methadone maintenance Surgical History: - Laser surgery for film on the eye lens Social History: - Active cigarette smoker since age 20, currently reduces to a pack every three days; intent on quitting. - Lives independently, limited social interactions. - Attempts to manage calories and reduce sugar intake. - Currently managing skin condition actively. - No alcohol consumption; avoids high-sugar beverages. - Employs no extra assistance with mobility but considers using a walker when necessary. Health Maintenance - Monthly ophthalmology consultations; last visit involved laser surgery. - Due for tetanus, flu, and COVID vaccines. - Attempts to seal moisture in skin with post-shower routines and nightly application of moisturizers with olive oil. - Practice refined by avoiding excessively high water temperatures. [place] [facility] - Follows care with outside property agent and garden tractor mechanic. - Reports regular care and consultation by Dr. Ortiz for gastroenterology. Medications - Celecoxib (Celebrex) as needed, prescribed by Dr. Ortiz (dose unspecified) - Methotrexate for ankylosing spondylitis - Omeprazole (dose unspecified) - Methadone for opioid dependence Diagnostic results - Labs: - Hemoglobin 12.8; improved from last year. - Kidney function tests within normal limits. - Electrolytes within normal limits. - Tests and diagnostics: - Liver enzymes reported normal. - Ophthalmology assessment post-laser surgery was satisfactory. Patient Instructions - Avoid excessively hot showers to maintain skin moisture. - Apply post-shower moisturizer and night-time olive oil to skin to improve hydration. - Continue decreasing cigarette smoking and consider support if needed. - Ensure vaccination at the local pharmacy, including tetanus, COVID, and flu shots. Return next year for physical exam Orders: Orders Lipid Panel Today F11.20 - Opioid dependence, uncomplicated, J45.40 - Moderate persistent asthma, uncomplicated, K21.9 - Gastro-esophageal reflux disease without esophagitis, M45.6 - Ankylosing spondylitis lumbar region, R60.0 - Localized edema, Z00.01 - Encounter for general adult medical examination with abnormal findings, Z72.0 - Tobacco use, Z79.631 - [employer] (current) use of antimetabolite agent Vitamin B12 Today F11.20 - Opioid dependence, uncomplicated, J45.40 - Moderate persistent asthma, uncomplicated, K21.9 - Gastro-esophageal reflux disease without esophagitis, M45.6 - Ankylosing spondylitis lumbar region, R60.0 - Localized edema, Z00.01 - Encounter for general adult medical examination with abnormal findings, Z72.0 - Tobacco use, Z79.631 - [facility] (current) use of antimetabolite agent TSH reflex Free T4 Today F11.20 - Opioid dependence, uncomplicated, J45.40 - Moderate persistent asthma, uncomplicated, K21.9 - Gastro-esophageal reflux disease without esophagitis, M45.6 - Ankylosing spondylitis lumbar region, R60.0 - Localized edema, Z00.01 - Encounter for general adult medical examination with abnormal findings, Z72.0 - Tobacco use, Z79.631 - [employer] (current) use of antimetabolite agent Comprehensive [place]. Panel Fast Today F11.20 - Opioid dependence, uncomplicated, J45.40 - Moderate persistent asthma, uncomplicated, K21.9 - Gastro-esophageal reflux disease without esophagitis, M45.6 - Ankylosing spondylitis lumbar region, R60.0 - Localized edema, Z00.01 - Encounter for general adult medical examination with abnormal findings, Z72.0 - Tobacco use, Z79.631 - [employer] (current) use of antimetabolite agent Ferritin Today F11.20 - Opioid dependence, uncomplicated, J45.40 - Moderate persistent asthma, uncomplicated, K21.9 - Gastro-esophageal reflux disease without esophagitis, M45.6 - Ankylosing spondylitis lumbar region, R60.0 - Localized edema, Z00.01 - Encounter for general adult medical examination with abnormal findings, Z72.0 - Tobacco use, Z79.631 - [facility] (current) use of antimetabolite agent Folate Today F11.20 - Opioid dependence, uncomplicated, J45.40 - Moderate persistent asthma, uncomplicated, K21.9 - Gastro-esophageal reflux disease without esophagitis, M45.6 - Ankylosing spondylitis lumbar region, R60.0 - Localized edema, Z00.01 - Encounter for general adult medical examination with abnormal findings, Z72.0 - Tobacco use, Z79.631 - [facility] (current) use of antimetabolite agent Vitamin D 25-OH (D2 and D3) Today F11.20 - Opioid dependence, uncomplicated, J45.40 - Moderate persistent asthma, uncomplicated, K21.9 - Gastro-esophageal reflux disease without esophagitis, M45.6 - Ankylosing spondylitis lumbar region, R60.0 - Localized edema, Z00.01 - Encounter for general adult medical examination with abnormal findings, Z72.0 - Tobacco use, Z79.631 - [facility] (current) use of antimetabolite agent Complete Blood Count Auto Diff Today F11.20 - Opioid dependence, uncomplicated, J45.40 - Moderate persistent asthma, uncomplicated, K21.9 - Gastro-esophageal reflux disease without esophagitis, M45.6 - Ankylosing spondylitis lumbar region, R60.0 - Localized edema, Z00.01 - Encounter for general adult medical examination with abnormal findings, Z72.0 - Tobacco use, Z79.631 - [employer] (current) use of antimetabolite agent
== END 2024-12-07 10:14 | disposition home or self-care (01) ==
LOC: HO.HMCC 09:34
PROVIDERS: PCP Internal Medicine; Visit Provider Internal Medicine
DX: Z00.01 Encounter for general adult medical examination with abnormal findings (principal); M45.6 Ankylosing spondylitis lumbar region; F11.20 Opioid dependence, uncomplicated; Z72.0 Tobacco use; Z79.631 Long term (current) use of antimetabolite agent; K21.9 Gastro-esophageal reflux disease without esophagitis

== ENCOUNTER 2024-12-15 10:10 | Outpatient (AMB) | payer OTHER, SELFPAY ==
--- NOTE | 2024-12-15 10:18 | A.OFFVIS_ITS ---
Vital Signs 12/15/24 10:25 Height 5 ft 5 in Weight 110 lb BMI 18.3 BP 112/64 Blood Pressure Location Rt brachial Position Sitting Pulse 72 Pulse Source Pulse Oximeter Pulse Oximetry (%) 97 Oxygen Delivery Method Room Air Intake Visit Reasons: follow up Intake Note: Patient presents for follow up. Allergies hayfever Allergy (Mild, Uncoded 12/07/24 09:37) sneezing, watery Medication List - Last Reconciled 12/15/24 by Amisha Schaffer MD celecoxib 200 mg PO BID chair, wheel (Wheel chair) As directed docusate sodium 100 mg PO BID 90 days ferrous sulfate 325 mg PO BID folic acid 1 mg PO DAILY methadone 30 mg PO BID methotrexate sodium 15 mg (6 x 2.5 mg) PO QWEEK 90 days omeprazole 40 mg PO DAILY [Ultra-Lightweight Wheel Chair (K0005) As directed] white petrolatum 41% (Aquaphor Original) 1 appl topical BID HPI Comments Details: Patient is a 44-year-old man with end stage ankylosing spondylitis c/b uveititis with fusion of SI joints and several joint deformities and 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, who is here today for follow up Interval History: Patient last seen 08/20/24 with me - On infliximab 5 mg/kg every 6 weeks, methotrexate 15 mg weekly, folic acid 1 mg daily - Patient followed up with ophthalmology and has been getting prednisolone eye drops and eye injections with improvement in his sight - Also feels better overall now that he is on the infusion Today - On infliximab 5 mg/kg every 6 weeks, methotrexate 15 mg weekly, folic acid 1 mg daily - Continues to do well - had dental surgery procedure and had excessive bleeding but this resolved after application of TXA in the ED - previously getting nausea with methotrexate but altered the timing of his medications and that has also improved Rheumatologic History: Patient states that when he was in his mid 20s (around ) he started to have lower back pain which she initially attributed to his work but this pain progressed and he sought medical attention. He was ultimately diagnosed with ankylosing spondylitis and started on methotrexate, Humira (with minimal effect) and subsequently Enbrel. He was noncompliant with his medications and ultimately self discontinued his medications and sought to medicate himself with fentanyl on the street. And he has been doing this for several years. Within the past year he has gotten clean is currently in a methadone program and he is looking to establish care for his ankylosing spondylitis. His ank spond has been complicated by recurrent uveitis. Over the years he has had several deformities that have progressed and now he has to walk with 2 canes. 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 Social History Housing: House Alcohol intake: current Alcohol intake frequency: holidays/special occasions only Patient Tobacco Use Status: Current everyday Tobacco user Cigarette Packs Per Day: 0.5 e-Cigarette/Vaping Use: Never Used service: No Current occupational status: disabled Cognitive needs: No Hearing needs: No Vision needs: No Review of Systems Const Details: Review of Systems Constitutional: Denies fever, chills, weight loss ENT: Denies vision changes, eye pain or eye redness, dental caries, dry mouth GI: Denies nausea, vomiting, diarrhea, abdominal pain, change in BM Pulm: Denies SOB, COX, hemoptysis, wheezing Cards: Denies chest pain, palpitations Skin: Denies Raynaud's, rash, nail changes, photosensitivity, [employer]: Denies headaches, weakness, paresthesias, recurrent falls MSK: as per HPI All other systems reviewed and are unremarkable except noted above Physical Exam Exam Exam: Vital signs reviewed Physical Examination CONSTITUITIONAL Patient alert and cooperative. Well appearing and in no apparent painful distress MSK Hands * Right Hand: Contraction deformities noted to the right hand. Unable to make a fist. No swelling or tenderness to palpation of the MCPs, PIPs or DIPs. * Left Hand: Contraction deformities noted to the left hand. Unable to make a fist. No swelling or tenderness to palpation of the MCPs, PIPs or DIPs. Wrists * Right Wrist: Fixed ROM. No swelling or TTP * Left Wrist: Fixed ROM. No swelling or TTP Elbows * Right Elbow: Decreased ROM. No swelling or TTP. No TTP of the medial epicondyle. No TTP of the lateral epicondyle * Left Elbow: Decreased ROM. No swelling or TTP. No TTP of the medial epicondyle. No TTP of the lateral epicondyle Shoulders * Right shoulder: Decreased ROM. No swelling noted. No TTP of the AC joint. No TTP of the subacromial bursa. No TTP of the posterior shoulder * Left shoulder: Decreased ROM. No swelling noted. No TTP of the AC joint. No TTP of the subacromial bursa. No TTP of the posterior shoulder Knees * Right knee: Held in extension, unable to flex. No swelling noted. No TTP of the knee joint line. No TTP of pes anserine bursa * Left knee: Held in extension, unable to flex. No swelling noted. No TTP of the knee joint line. No TTP of pes anserine bursa. Ankles * Right ankle: Swelling noted, but improved No swelling. No TTP of the ankle joint * Left ankle: Swelling noted, but improved. No TTP of the ankle joint Feet * Right foot: Negative squeeze test * Left foot: Negative squeeze test Tender points? * No tenderness to palpation of the bilateral trapezius, supraspinatus, anterior costochondral junctions, bilateral suboccipital muscle insertions SKIN Xerosis cutis of the lower legs bilaterally Vital Signs: Last Vital Signs Pulse 72 12/15/24 10:25 BP 112/64 12/15/24 10:25 Pulse Ox 97 12/15/24 10:25 Oxygen Delivery Method Room Air 12/15/24 10:25 BMI result Body Mass Index 18.3 Results Reviewed Results Reviewed: Laboratory Tests 01/23/24 08/16/24 12/07/24 11:31 10:03 10:35 WBC 5.5 RBC 4.60 Hgb 13.7 L Hct 41.0 L Plt Count 290 D ESR 77 H 55 H Sodium 138 Potassium 4.6 Chloride 100 Carbon Dioxide 30 H BUN 24 H Creatinine 1.01 AST 34 ALT 19 C-Reactive Protein 14.55 H 2.86 H 2.68 H 25-Hydroxy Vitamin D3 47 Laboratory Tests 01/23/24 11:31 HLA-B27 Positive A Laboratory Tests 08/16/24 10:03 Hepatitis A IgM Ab Nonreactive Hep Bs Antigen Negative Hep Bs Antibody NONREACTIVE Hep B Core Total Ab Nonreactive Hepatitis C Ab (EIA) Nonreactive TB Test (T-Spot) Com Negative Assessment & Plan Assessment & Plan (1) Ankylosing spondylitis: Comment: Diagnosed in his 20s Previously on methotrexate, Humira and Enbrel with limited efficacy Lost to follow-up and 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 Starting on infliximab and methotrexate Code(s): M45.9 - Ankylosing spondylitis of unspecified sites in spine Category: Medical Qualifiers: Ankylosing spondylitis location: lumbar region Qualified Code(s): M45.6 - Ankylosing spondylitis lumbar region Plan: #Ankylosing Spondylitis Patient is a 44-year-old male with ankylosing spondylitis and all of the erosions and complications associated with this including uveitis. This is a really severe progression of his disease. Significant improvement in his inflammatory markers and his overall feeling. Unfortunately because of his end-stage disease he has a lot of contractures but there is no evidence of any active synovitis at this time. Plan - Infliximab infusions 5 mg/kg every 6 weeks - Methotrexate 15mg PO every week - Folic acid 1mg daily - RTC 6 months - Labs before visit: CBC, CMP, ESR, CRP (2) Uveitis: Code(s): H20.9 - Unspecified iridocyclitis Category: Medical Plan: #Uveitis Continue follow up with ophthalmology Plan - Continue opthal (3) Encounter for monitoring of infliximab therapy: Code(s): Z51.81 - Encounter for therapeutic drug level monitoring; Z79.620 - termite treater helper (current) use of immunosuppressive biologic Category: Medical Plan: #Long-term Use of TNF Inhibitors: Infliximab Discussed with the patient the benefits and risks of TNF inhibitors for the management of the rheumatic condition Benefits include reduce pain, maintenance of remission and reduction of flares as well as ?progression of the disease Risks include injection sites/infusion reactions, serious infections (such as bacterial infections, opportunistic infections), malignancy, delaminating syndromes, autoimmune phenomena, CHF exacerbations, palmar plantar psoriasis and cytopenias Recommended rotating injection sites, and holding medication during and for up t o 1 week after resolution of a febrile illness or open skin wound (4) Methotrexate, half-way, current use: Code(s): Z79.631 - custodial (current) use of antimetabolite agent Category: Medical Plan: #Long-term Current Use of Methotrexate Discussed with patient the benefits and risks of methotrexate for managing their rheumatic condition Benefits include reduced pain, reduced mortality, maintenance of remission and reduction of flares Risks include oral ulcers, photosensitivity, hepatotoxicity, hematologic toxicity, pneumonitis, flu-like symptoms (especially day after administration), nodulosis, lymphomas ? Limit alcohol and avoid Bactrim ? Monitoring: ?CBC, BMP, LFTs every 3-4 months and hepatitis serologies as needed (5) Encounter for long-term (current) use of NSAIDs: Code(s): Z79.1 - custodial (current) use of non-steroidal anti-inflammatories (NSAID) Category: Medical Plan: #Long-term Use of NSAIDs Discussed with patient the benefits and risk of NSAIDs for managing the rheumatic condition Benefits include: - Reduced the pain, improved mobility, and increased participation in activities Risks include: - GI upset, potential also worsening or formation (especially in patients > 65 years old) Recommended using proton pump inhibitors (PPIs) for the duration of NSAID use to reduce the risk of gastric ulcers Plan I spent 30 minutes reviewing the record and labs, seeing the patient, discussing the treatment plan and documenting in the medical record Medications: New white petrolatum 41% (Aquaphor Original) 1 appl topical BID 396 grams 2RF dry skin L85.3 - Xerosis cutis Coding Level of Care Code Est Pt Level 4 (55798) Complex EM visit Add On G2211 Diagnoses Ankylosing spondylitis of lumbar region M45.6 Ankylosing spondylitis location: lumbar region Uveitis H20.9 Encounter for monitoring of infliximab therapy Z51.81; Z79.620 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
[2024-12-15 10:25] VITALS: BP 112/64; PULSE 72; O2SAT 97; BMI 18.3
== END 2024-12-15 10:56 | disposition home or self-care (01) ==
LOC: HO.RHES 10:11
PROVIDERS: PCP Internal Medicine; Visit Provider Student in an Organized Health Care Education/Training Program
DX: M45.6 Ankylosing spondylitis lumbar region (principal); H20.9 Unspecified iridocyclitis; Z51.81 Encounter for therapeutic drug level monitoring; Z79.620 Long term (current) use of immunosuppressive biologic; Z79.631 Long term (current) use of antimetabolite agent; Z79.1 Long term (current) use of non-steroidal anti-inflammatories (NSAID)
CPT/HCPCS: 99214; G2211

== ENCOUNTER → 2024-12-15 10:10 | Outpatient (BNVA) | payer OTHER, SELFPAY | PROVIDERS: PCP Internal Medicine; Visit Provider Student in an Organized Health Care Education/Training Program | DX: M45.6 Ankylosing spondylitis lumbar region (principal); H20.9 Unspecified iridocyclitis; Z51.81 Encounter for therapeutic drug level monitoring; Z79.620 Long term (current) use of immunosuppressive biologic; Z79.631 Long term (current) use of antimetabolite agent; Z79.1 Long term (current) use of non-steroidal anti-inflammatories (NSAID) | CPT/HCPCS: 99212 ==

== ENCOUNTER 2025-03-02 09:28 | Outpatient (AMB) | payer OTHER, SELFPAY ==
[2025-03-02 09:36] VITALS: BP 100/60; PULSE 60; O2SAT 95; BMI 20.6
--- NOTE | 2025-03-02 09:36 | A.OFFPC_ITS ---
Vital Signs 03/02/25 09:36 Height 5 ft 5 in Weight 124 lb BMI 20.6 BP 100/60 Blood Pressure Location Lt brachial Position Sitting Pulse 60 Pulse Source Pulse Oximeter Pulse Oximetry (%) 95 Intake Visit Reasons: Pre-Op- [facility] Allergies hayfever Allergy (Mild, Uncoded 03/02/25 09:36) sneezing, watery Medication List - Last Reconciled 03/02/25 by Gloria Kirkpatrick MD celecoxib 200 mg PO BID chair, wheel (Wheel chair) As directed docusate sodium 100 mg PO BID 90 days ferrous sulfate 325 mg PO BID folic acid 1 mg PO DAILY methadone 30 mg PO BID methotrexate sodium 15 mg (6 x 2.5 mg) PO QWEEK 90 days omeprazole 40 mg PO DAILY [Ultra-Lightweight Wheel Chair (K0005) As directed] white petrolatum 41% (Aquaphor Original) 1 appl topical BID Tobacco use date assessed: 12/07/24 Dental Screening Dental Screen Date: 12/07/24 HPI HPI Comments History of Present Illness0 Details History The patient is a 44 year old individual presenting for a preoperative evaluation for a planned vitrectomy surgery on the left eye. Preoperative Evaluation: - The patient is scheduled for a vitrect cj on the left eye on March 08 at the [facility]. - The patient reports no current complai nts, fever, chills, sore throat, or other signs of infection. Ankylosing Spondylitis: - The patient has a history of ankylosin g spondylitis and is established with rheumatology. - The patient is on chronic methotrexate treatment and takes Celebrex for joint aches and pains. - The condition affects the patient's mo bility, requiring the use of bilateral canes for ambulation due to issues with knee and ankle joints. Chronic Medical Conditions: - The patient has a history of chronic o n-and-off uveitis, asthma, chronic GERD, methadone dependence, and xerosis of the skin. - There is no cardiac history. Anemia: - The patient has a history of anemia, w ith a hemoglobin of 13.7 g/dL in November of this year, which was an improvement from 12.8 in July. Medical History: - Chronic on-and-off uveitis - Ankylosing spondylitis - Asthma - Tobacco abuse - Chronic GERD - Methadone dependence - Xerosis of skin - No cardiac history Surgical History: - Prior lens replacement Diagnostic Results: - Labs from November of this year leonor led the following: - Hemoglobin: 13.7 g/dL, improved from 1 2.8 in July. - Electrolytes and kidney functions: Int act. - Liver enzymes: Stable. - LDL: 107 mg/dL. - TSH: Within normal limits. [facility] Medical History Encounter for long-term (current) use of NSAIDs Methotrexate, piecer, current use Encounter for monitoring of infliximab therapy Xerosis of skin Seborrheic dermatitis of scalp Chronic GERD Uveitis Asthma, moderate Tobacco abuse Ankylosing spondylitis Surgical History No pertinent past surgical history Family History Father Lymphoma Mother HTN (hypertension) Sister No problems noted. Social History Housing: House Alcohol intake: current Alcohol intake frequency: holidays/special occasions only Patient Tobacco Use Status: Current everyday Tobacco user Cigarette Packs Per Day: 0.5 e-Cigarette/Vaping Use: Never Used service: No Current occupational status: disabled Cognitive needs: No Hearing needs: No Vision needs: No Questionnaire Thrive Questionnaire Date Thrive assessed: 12/07/24 YEIMI-7 AMB Questionnaire YEIMI-7 Date YEIMI - 7 assessed: 12/07/24 Source: Developed by Drs. Terrance Colbert, Jeanette Horton, Mark Bryson and colleagues, with an educational titi from [employer]. Physical exam (Primary Care) Vital Signs: Last Vital Signs Pulse 60 03/02/25 09:36 BP 100/60 03/02/25 09:36 Pulse Ox 95 03/02/25 09:36 BMI result Body Mass Index 20.6 Tobacco/Smoking Status: Tobacco use Status Tobacco use date assessed 12/07/24 03/02/25 09:39 Patient Tobacco Use Status Current everyday Tobacco 03/02/25 09:39 e-Cigarette/Vaping Use Never Used 03/02/25 09:39 Thrive Assessment: Date of Thrive Assessment Date Thrive assessed 12/07/24 03/02/25 09:39 Coding Level of Care Code Est Pt Level 4 (56759) Diagnoses Pre-op evaluation Z01.818 Blurred vision, left eye H53.8 Anemia, unspecified type D64.9 Anemia type: unspecified type Ankylosing spondylitis of lumbar region M45.6 Ankylosing spondylitis location: lumbar region Moderate persistent asthma without complication J45.40 Asthma complication type: uncomplicated Asthma persistence: persistent Xerosis of skin L85.3 Uveitis H20.9 Assessment & Plan Assessment & Plan (1) Pre-op evaluation: Code(s): Z01.818 - Encounter for other preprocedural examination Category: Medical (2) Blurred vision, left eye: Code(s): H53.8 - Other visual disturbances Category: Medical (3) Anemia: Code(s): D64.9 - Anemia, unspecified Category: Medical Qualifiers: Anemia type: unspecified type Qualified Code(s): D64.9 - Anemia, unspecified (4) Ankylosing spondylitis: Comment: Diagnosed in his 20s Previously on methotrexate, Humira and Enbrel with limited efficacy Lost to follow-up and 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 Starting on infliximab and methotrexate Code(s): M45.9 - Ankylosing spondylitis of unspecified sites in spine Category: Medical Qualifiers: Ankylosing spondylitis location: lumbar region Qualified Code(s): M45.6 - Ankylosing spondylitis lumbar region (5) Asthma, moderate: Code(s): J45.909 - Unspecified asthma, uncomplicated Category: Medical Qualifiers: Asthma complication type: uncomplicated Asthma persistence: persistent Qualified Code(s): J45.40 - Moderate persistent asthma, uncomplicated (6) Xerosis of skin: Code(s): L85.3 - Xerosis cutis Category: Medical (7) Uveitis: Code(s): H20.9 - Unspecified iridocyclitis Category: Medical Plan Problem List - Preoperative evaluation for eye surgery - Chronic uveitis - Ankylosing spondylitis - Asthma - Tobacco use disorder - Chronic gastroesophageal reflux disease - Opioid dependence on methadone - Xerosis cutis - Anemia Plan 1. Preoperative Evaluation - The patient is cleared for the scheduled left eye vitrectomy as there are no contraindications found during the visit. - A repeat CBC and metabolic profile will be obtained today for preoperative assessment, as the last labs were three months ago. - The lab results will be attached to the note and sent to the surgeon. 2. Ankylosing Spondylitis - Continue current management with methotrexate and Celebrex under the care of rheumatology. Medical Decision Making The patient is a 44 year old individual with a complex medical history, including ankylosing spondylitis on methotrexate, chronic uveitis, asthma, GERD, and methadone dependence, who presented for preoperative clearance for a left eye vitrectomy scheduled for March 08. The patient's vital signs are stable, and the patient reports feeling well without any signs or symptoms of acute infection. A review of labs from November showed an improved hemoglobin, stable liver enzymes, and intact renal function. Given the three-month interval since the last lab work, a repeat CBC and comprehensive metabolic profile were ordered today to ensure stability before the procedure. The patient has no cardiac history, and the physical exam revealed no acute cardiopulmonary issues. Based on the stable clinical presentation and absence of contraindications, the patient is cleared for surgery pending the results of today's labs, which will be forwarded to the surgeon. Orders: Orders Complete Blood Count Auto Diff Today D64.9 - Anemia, unspecified, H26.9 - Unspecified cataract, J45.40 - Moderate persistent asthma, uncomplicated, L85.3 - Xerosis cutis, M45.6 - Ankylosing spondylitis lumbar region, Z01.818 - Encounter for other preprocedural examination Comprehensive Met. Panel Today D64.9 - Anemia, unspecified, H26.9 - Unspecified cataract, J45.40 - Moderate persistent asthma, uncomplicated, L85.3 - Xerosis cutis, M45.6 - Ankylosing spondylitis lumbar region, Z01.818 - Encounter for other preprocedural examination
== END 2025-03-02 09:56 | disposition home or self-care (01) ==
LOC: HO.HMCC 09:29
PROVIDERS: PCP Internal Medicine; Visit Provider Internal Medicine
DX: Z01.818 Encounter for other preprocedural examination (principal); H53.8 Other visual disturbances; D64.9 Anemia, unspecified; M45.6 Ankylosing spondylitis lumbar region; J45.40 Moderate persistent asthma, uncomplicated; L85.3 Xerosis cutis; H20.9 Unspecified iridocyclitis

== ENCOUNTER 2025-03-02 09:28 | Outpatient (REF) | payer OTHER, SELFPAY ==
[2025-03-02 13:06] LABS: MANUAL DIFF FLAG NO
[2025-03-02 13:21] LABS: Hematocrit 41.6 % (42.0-52.0); Hemoglobin 13.6 g/dl (14.0-18.0); Imm Gran Abs Auto 0.02 X10*3/uL (0.00-0.03); Imm Gran Pct Auto 0.3 % (0.0-0.4); Lymphocytes Absolute Auto 1.7 X10*3/uL (1.2-4.9); Mean Corpuscular HGB Conc 32.7 g/dl (31.0-36.0); Mean Corpuscular Hemoglobin 28.7 pg (27.0-33.0); Mean Corpuscular Volume 87.8 fL (80.0-98.0); NRBC Abs Auto 0.000 X10*3/uL (0.0-0.012); NRBC Pct Auto 0.0 /100WBC (0.0-0.2); Platelet Count 261 X10*3/uL (160-400); Red Blood Count 4.74 X10*6/uL (4.60-5.80); White Blood Count 6.4 X10*3/uL (4.8-10.8)
[2025-03-02 14:21] LABS: Alanine Aminotransferase 32 U/L (0-40); Albumin Level 4.7 g/dL (3.5-5.0); Alkaline Phosphatase 111 U/L (39-117); Anion Gap 12 (12-20); Aspartate Amino Transferase 46 U/L (5-37); Blood Urea Nitrogen 26 mg/dL (9-16); Calcium 10.0 mg/dL (8.4-10.2); Carbon Dioxide 28 mmol/L (22-29); Chloride 104 mmol/L (96-108); Estimated Glomerular Filt Rate > 60; Potassium 4.8 mmol/L (3.3-5.1); Sodium 139 mmol/L (135-145); Total Protein 8.8 g/dL (6.5-8.0)
== END 2025-03-02 09:29 | disposition home or self-care (01) ==
LOC: HO.HMGCLDS 09:28
PROVIDERS: PCP Internal Medicine; Visit Provider Internal Medicine
DX: Z01.818 Encounter for other preprocedural examination (principal); H26.9 Unspecified cataract; L85.3 Xerosis cutis; J45.40 Moderate persistent asthma, uncomplicated; M45.6 Ankylosing spondylitis lumbar region; D64.9 Anemia, unspecified
CPT/HCPCS: 36415; 80053; 85025; 99212